=== PATIENT | male | born 1980 | race Caucasian/White ===

== ENCOUNTER 2017-11-25 22:57 | Inpatient (IN) | payer MEDICAID ==
[~2017-11-25] VITALS: Ht 185.4 cm; Wt 59.0 kg
[2017-11-25 00:50] VITALS: BP 127/81; PULSE 92; RESP 20; TEMP 97.4
[~2017-11-25 22:57] MED LIST: GEOD80CA PO; LEVO125T4 PO; TRAZ1TAB14 PO
[2017-11-25 23:15] VITALS: BP 139/89; PULSE 98; RESP 17; TEMP 98.5; O2SAT 97
--- NOTE | 2017-11-25 23:17 | PD ---
HPI Chief Complaint: Psychiatric Symptoms Time Seen by Provider: 23:14 Travel History International Travel<30 days: No Contact w/Intl Traveler<30days: No Traveled to known affect area: No History of Present Illness HPI 37-year-old white male presents to emergency department as a transfer from [facility] under Mccormick act. The patient admits to feeling depressed and having suicidal thoughts. They have been medically cleared. PFSH Past Medical History Bipolar Disorder: Yes Anxiety: Yes Depression: Yes Cardiovascular Problems: Yes (HTN) Diminished Hearing: No Hypertension: Yes Thyroid Disease: Yes Past Surgical History Other Surgery: Yes (thyroid) Social History Alcohol Use: No Tobacco Use: No Substance Use: Yes (marijuana 2 days ago) Allergies-Medications (Allergen,Severity, Reaction): Coded Allergies: morphine (Verified Allergy, Severe, Swelling, 11/15/17) Reported Meds & Prescriptions Reported Meds & Active Scripts Active Reported Levothyroxine (Levothyroxine Sodium) 125 Mcg Tab 125 Mcg PO DAILY Geodon (Ziprasidone) 80 Mg Cap 80 Mg PO BID Trazodone (Trazodone HCl) 150 Mg Tablet 150 Mg PO HS Review of Systems General / Constitutional: No: Fever Eyes: No: Visual changes HENT: No: Headaches Cardiovascular: No: Chest Pain or Discomfort Respiratory: No: Shortness of Breath Gastrointestinal: No: Abdominal Pain Genitourinary: No: Dysuria Musculoskeletal: No: Pain Skin: No Rash Neurologic: No: Weakness Psychiatric: Positive: Depression, Suicidal Ideations, No: Anxiety, Disorder of Thought, Mood Disorder, Substance Abuse, Homicidal Ideation Endocrine: No: Polydipsia Hematologic/Lymphatic: No: Easy Bruising Physical Exam Narrative GENERAL: This is a well-nourished, well-developed patient, in no apparent distress. SKIN: No rashes, ecchymoses or lesions. Warm and dry. HEAD: Atraumatic. Normocephalic. EYES: PERRL, EOMI, no discharge or injection. No scleral icterus. EARS: Clear NOSE: Nasal turbinates appear normal. THROAT: Mucosa pink and moist. Airway patent. NECK: Trachea midline. supple, moves head freely. LUNGS: Clear to auscultation. CV: Regular in rhythm. ABDOMEN: Soft nontender. EXT: No clubbing cyanosis or edema. Data Data Orders Orders Psych Screen (11/25/17 23:07) [facility] Medical Decision Making Medical Screen Exam Complete: Yes Emergency Medical Condition: Yes Medical Record Reviewed: Yes Interpretation(s) Patient's laboratory tests have been reviewed. TSH is elevated at 12. Differential Diagnosis MDM: High Differential diagnoses: Schizophrenia, schizoaffective disorder, bipolar, anxiety, depression, adjustment reaction, mood disorder NOS, ODD, depressive disorder NOS, dementia, dementia with agitation, psychosis NOS, substance induced mood disorder, DMDD, Asperger syndrome, infection,electrolyte abnormality, malingering. Narrative Course Mental health screening discussed with the patient. Psychiatric screen ordered. The patient is been medically cleared. This is medical clearance for psychiatric admission Diagnosis Primary Impression: Medical clearance for psychiatric admission Condition: Stable Miles Olea Nov 25, 2017 23:17
[2017-11-26 00:50] VITALS: BP 127/81; PULSE 92; RESP 16; TEMP 97.4; O2SAT 99
[2017-11-26] MEDS ORDERED: ACETAMINOPHEN 325 MG TAB PO PRN (01:00)
[2017-11-26] MEDS ORDERED: traZODone HCL 50 MG TAB PO PRN (01:00)
[2017-11-26] MEDS ORDERED: ALUMINUM/MAGNESIUM/SIMETH 30 ML CUP PO PRN (01:00)
[2017-11-26] MEDS ORDERED: hydrOXYzine HCL 50 MG TAB PO PRN (01:00)
[2017-11-26] MEDS ORDERED: MAGNESIUM HYDROXIDE SUSP 30 ML CUP PO PRN (01:00)
[2017-11-26 05:55] VITALS: BP 109/59; PULSE 74; RESP 18; TEMP 98.4; O2SAT 99
[2017-11-26] MEDS: NICOTINE 21 MG/24 HR PATCH T-DERMAL SCH (08:27)
[2017-11-26 10:48] LABS: BICARBONATE 29.1 MEQ/L (21.0-32.0); BLOOD UREA NITROGEN 14 MG/DL (7-18); CHLORIDE 104 MEQ/L (98-107); CREATININE 1.01 MG/DL (0.60-1.30); GLOMERULAR FILTRATION RATE 84 ML/MIN (>89); GLUCOSE,RANDOM 79 MG/DL (74-106); SODIUM (NA) 139 MEQ/L (136-145)
[2017-11-26 10:50] LABS: CHOLESTEROL 125 MG/DL (120-200)
[2017-11-26 10:52] LABS: CHOLESTEROL/ HDL RATIO 3.16 RATIO; HDL CHOLESTEROL 39.5 MG/DL (40.0-60.0); LDL CHOLESTEROL 74 MG/DL (0-99); TRIGLYCERIDES 57 MG/DL (42-150)
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
[2017-11-26] MEDS: ZIPRASIDONE HCL 40 MG CAP PO SCH ×2 (13:30→16:38)
--- NOTE | 2017-11-26 15:17 | PD.CONS ---
[facility] By Primary Care Physician No Primary Care Physician Diagnoses: History of Present Illness hx from patient , ER notes and review of medical records Patient is admitted to inpatient psychiatry unit. Patient reports that he has been off his medications which include Xanax, Zoloft , trazodone for about 3 weeks and he was going into withdrawal which was why he was admitted to psychiatry. Medical team was consulted for management of his medical issues. Patient reports of history of hypertension and thyroid cancer. He states that he has been off his medications for these medical conditions as well for the past 3 weeks. He reports of constant nausea and vomiting. Vomited about 2 times a day. He also reports a constant diarrhea and he cannot even count the number. He reports his stool is black in color. He is not on any blood thinners at home. Is not taking any NSAIDs. Not on iron pills. Denies being on antibiotics recently. Reports of weight lost from 180 pounds 235 pounds in the past 1 year. However he had accelerated weight loss in the past 2 months as well. Reports he has trouble swallowing food. Mostly he states even have to bend down his neck in order to swallow food because of dysphagia. He states the travel happens even with water. Also reports of dizziness when he suddenly sits up. Reports of choking episodes on and off. Patient reports of profuse diaphoretic episodes with hot and cold chills. Regarding his thyroid cancer, it was diagnosed as papillary thyroid cancer. He has had surgical removal twice, and also had radioactive iodine treatment twice. Most recently, he was told that he has recurrence because there was some lymph nodes. However he lost his insurance in October 2017 and he was not able to get treatment. Previously, he was following up at [facility] and also at [facility] His previous PCP was in [place]. Patient describes of episodes where he would get quite dizzy and have numbness and tingling of his bilateral extremities with associated chest tightness. He is a smoker half a pack a day. Review of Systems Except as stated in HPI: all other systems reviewed are Neg Past Family Social History Allergies: Coded Allergies: morphine (Verified Allergy, Severe, Swelling, 11/25/17) Past Medical History Hypertension Papillary thyroid carcinoma- status post surgery 2, and radioactive iodine treatment. Was told there is recurrence but has been lost to follow-up due to insurance reasons. PTSD Bipolar disorder Past Surgical History Thyroidectomy Some skin surgery which he was told was for cat scratch disease at the age of 89 years old Family History Reports mother with bipolar disorder. She is also recently diagnosed with leukemia and is still in the workup. Grandmother had thyroid problems. Social History Smokes about half a pack a day. Denies any alcohol abuse or drug abuse. Physical Exam Vital Signs Vital Signs Date Time Temp Pulse Resp B/P (MAP) Pulse Ox O2 Delivery O2 Flow Rate FiO2 11/26/17 05:55 98.4 74 18 109/59 (76) 99 11/26/17 00:50 97.4 92 16 127/81 (96) 99 11/26/17 00:25 11/25/17 23:15 98.5 98 17 139/89 (106) 97 Room Air Physical Exam GENERAL: This is a thin gentleman,, in no apparent distress. Cachectic SKIN: No rashes, ecchymoses or lesions. Cool and dry. HEAD: Atraumatic. Normocephalic. No temporal or scalp tenderness. EYES: No scleral icterus. No injection or drainage. ENT: Nose without bleeding, purulent drainage or septal hematoma. Airway patent. NECK: Trachea midline. No JVD. Supple, nontender, no meningeal signs. CARDIOVASCULAR: Regular rate and rhythm without murmurs, gallops, or rubs. RESPIRATORY: Clear to auscultation. Breath sounds equal bilaterally. No wheezes , rales, or rhonchi. GASTROINTESTINAL: Abdomen soft, non-tender, nondistended. . No guarding. MUSCULOSKELETAL: Extremities without clubbing, cyanosis, or edema. No calf tenderness. NEUROLOGICAL: Awake and alert. Motor and sensory grossly within normal limits Normal speech. Laboratory Laboratory Tests Test 11/26/17 09:40 Blood Urea Nitrogen 14 Creatinine 1.01 Random Glucose 79 Calcium Level 9.0 Sodium Level 139 Potassium Level 4.0 Chloride Level 104 Carbon Dioxide Level 29.1 Anion Gap 6 Estimat Glomerular Filtration Rate 84 Triglycerides Level 57 Cholesterol Level 125 LDL Cholesterol 74 HDL Cholesterol 39.5 Cholesterol/HDL Ratio 3.16 Result Diagram: 11/26/17 0940 Assessment and Plan Assessment and Plan Impression: Bipolar disorder with major depressive episode. Management per psychiatry Loss of follow-up due to insurance reasons. With symptoms highly suggestive of uncontrolled thyroid functions. Nausea/vomiting/diarrhea/chills. Melena. Significant dysphagia. Likely from radiation treatment Weight loss. From depression/malignancy/dysphagia. Papillary thyroid carcinoma. With possible recurrence from history. Hypertension Plan: Check hemoglobin hematocrit stat. Type and screen. From review of his previous labs, it seems that his hemoglobin did drop in the past few days. Check stool for occult blood. GI consult for dysphagia and melena Protonix 40 mg by mouth twice a day. Ultrasound of the thyroid. Oncology consult for further evaluation and treatment. Call [facility] at cancer center and patient's previous doctors to get records of his previous treatments. Check TSH. However even if the levels are altered, would be difficult to change medications dose since he has been off his meds for 3 weeks. It is rather that the levels are off due to not taking meds rather than inadequate meds. His thyroid meds have been resumed. We'll monitor his blood pressure. Doubt that this patient will have high blood pressure with his significant weight loss. Doubt he would need medications. DVT prophylaxis ambulation. GI prophylaxis on pantoprazole. Earlene Hale MD Nov 26, 2017 15:17
--- NOTE | 2017-11-26 16:21 | PD.CONS ---
HPI History of Present Illness This is a 37 year old M who is currently admitted to [facility] psych unit under a Mccormick Act. GI has been consulted to evaluate patient for complaints of dysphagia. Pt has history of thyroid cancer, received two treatments of radioactive iodine, last treatment seven months ago, and underwent thyroidectomy six months ago at [facility] [place]. Pt reports no recent follow up with oncology after he lost his insurance. Complaints of dysphagia since after thyroidectomy, with both liquids and solids. States it feels like his food is getting stuck. Has occasionally had to vomit for relief of globus sensation. Also reports 45 pound unintentional weight loss over the past year, thinks due to loss of appetite. Also reports diarrhea and black stool for the past two months. Also report acid reflux, not on prescription medication and has not been taking anything OTC for relief. Very vague abdominal pain, chronic, denies aggravating or alleviating factors. Denies ETOH. Current half a pack a day smoker, quit for a while and restarted a few weeks ago. Takes an Excedrin daily for migraines. Denies ever having EGD or colonoscopy. Family history significant for colon cancer, father, had to have part of his bowel removed. (Sharon Cobos) PFSH Past Medical History Bipolar disorder Anxiety Depression HTN Thyroid cancer Past Surgical History Thyroidectomy (Sharon Cobos) Coded Allergies: morphine (Verified Allergy, Severe, Swelling, 11/25/17) Social History Denies ETOH Smoker- half a pack a day (Sharon Cobos) Review of Systems Gastrointestinal: COMPLAINS OF: Abdominal pain, Black stools, Diarrhea, Vomiting, Difficulty Swallowing, Odynophagia, Heartburn, DENIES: Bloody stools, Constipation, Nausea, Swelling of Abdomen, Hematemesis (Sharon Cobos) GI Exam Vitals I&O Vital Signs Date Time Temp Pulse Resp B/P (MAP) Pulse Ox O2 Delivery O2 Flow Rate FiO2 11/26/17 05:55 98.4 74 18 109/59 (76) 99 11/26/17 00:50 97.4 92 16 127/81 (96) 99 11/26/17 00:25 11/25/17 23:15 98.5 98 17 139/89 (106) 97 Room Air I/O 1/2111/25/17 11/25/17 11/26/17 11/26/17 11/26/17 07:00 15:00 23:00 07:00 15:00 23:00 Intake Total 240 ml Balance 240 ml Intake Oral 240 ml Laboratory Test 11/26/17 09:40 Blood Urea Nitrogen 14 MG/DL Creatinine 1.01 MG/DL Random Glucose 79 MG/DL Calcium Level 9.0 MG/DL Sodium Level 139 MEQ/L Potassium Level 4.0 MEQ/L Chloride Level 104 MEQ/L Carbon Dioxide Level 29.1 MEQ/L Anion Gap 6 MEQ/L Estimat Glomerular Filtration Rate 84 ML/MIN Triglycerides Level 57 MG/DL Cholesterol Level 125 MG/DL LDL Cholesterol 74 MG/DL HDL Cholesterol 39.5 MG/DL Cholesterol/HDL Ratio 3.16 RATIO Physical Examination HEENT: Normocephalic; atraumatic CHEST: Even/unlabored CARDIAC: RRR ABDOMEN: Soft, nondistended, nontender; bowel sounds active EXTREMITIES: No clubbing, cyanosis, or edema. SKIN: Normal; no rash; no jaundice. IMPORT/EXPORT AGENT: No focal deficits; alert and oriented times three. (Sharon Cobos) Assessment and Plan Plan Assessment: - Dysphagia with liquids and solids- globus sensation after eating- occasional emesis after eating with some relief- Has never had EGD- History of thyroid cancer S/P radioactive iodine x 2, last tx 7 months ago and thyroidectomy 6 months ago when dysphagia began - Black stool x 2 months. H/H 11.8/33.5. Hemoccult ordered by attending. Reports daily Excedrin use for migraines. Denies taking blood thinners, ETOH. Has never had EGD. Will do EGD tomorrow to evaluate - Unintentional weight loss, 45 pounds over past year with decreased appetite. Could be secondary to thyroid cancer, however, due to family history of colon cancer, father. Pt has never had colonoscopy. Will do CT abdomen and pelvis to evaluate. Plan: - EGD with dilation tomorrow - Obtain consent - NPO after MN - Protonix - CT abdomen and pelvis - Monitor labs - Supportive care - Further recommendations to follow Pt has been seen and examined by myself and Dr. Guillory and this note is written on his behalf (Sharon Cobos) Physician Comments Seen and examined with [employer], egd/dilation planned for tomorrow. NPO after midnight. Further recs to follow after above. Thank you (Joel Guillory MD) Sharon Cobos Nov 26, 2017 16:21 Joel Guillory MD Nov 26, 2017 16:43
[2017-11-26 16:22] LABS: HEMOGLOBIN A1C 5.3 % (4.3-6.0)
[2017-11-26 16:57] LABS: BASOPHIL # 0.1 TH/MM3 (0-0.2); BASOPHIL % 0.7 % (0.0-2.0); EOSINOPHIL # 0.2 TH/MM3 (0-0.4); EOSINOPHIL % 1.9 % (0.0-4.0); HEMATOCRIT 35.8 % (39.0-51.0); HEMOGLOBIN 12.5 GM/DL (13.0-17.0); LYMPH % 20.6 % (9.0-44.0); LYMPHOCYTE # 1.8 TH/MM3 (1.0-4.8); MEAN CELL VOLUME 90.1 FL (80.0-100.0); MEAN CORPUSCULAR HEMOGLOBIN 31.3 PG (27.0-34.0); MEAN CORPUSCULAR HGB CONC 34.7 % (32.0-36.0); MEAN PLATELET VOLUME 8.2 FL (7.0-11.0); MONO % 7.5 % (0.0-8.0); MONOCYTE # 0.6 TH/MM3 (0-0.9); NEUT % 69.3 % (16.0-70.0); PLATELET COUNT 211 TH/MM3 (150-450); RED BLOOD COUNT 3.98 MIL/MM3 (4.50-5.90); RED CELL DISTRIBUTION WIDTH 13.5 % (11.6-17.2); WHITE BLOOD COUNT 8.6 TH/MM3 (4.0-11.0)
[2017-11-26] MEDS ORDERED: DIATRIZOATE MEGLUM/DIATRIZOATE SOD 9 ML CUP PO ONE (17:15)
[2017-11-26 17:28] LABS: TROPONIN I LESS THAN 0.02 NG/ML (0.02-0.05)
[2017-11-26 18:09] VITALS: BP 122/75; PULSE 83; RESP 18; TEMP 98.4; O2SAT 96
--- NOTE | 2017-11-26 18:14 | RADRPT ---
EXAM DATE/TIME: 11/26/2017 16:49 [place] COMPARISON: No previous studies available for comparison. INDICATIONS : Thyroid cancer. MEDICAL HISTORY : Hypothyroidism. Hypertension. Bipolar disorder. Juan's disease. thyroid c ancer. chemotherapy. radiation therapy. SURGICAL HISTORY : Thyroidectomy. ENCOUNTER: Initial ACUITY: 3 months PAIN SCORE: 4/10 LOCATION: Bilateral neck MEASUREMENTS: RIGHT LOBE: cmSurgically absent LEFT LOBE: cmSurgically absent FINDINGS: RIGHT LOBE: No significant residual mass in the thyroidectomy bed. LEFT LOBE: Heterogeneously isoechoic mass in the left thyroid bed measuring 1.2 x 0.6 x 0.8 cm. CONCLUSION: 1. Status post total thyroidectomy with heterogeneous isoechoic mass in the left thyroid bed measurin g 1.2 x 2.6 x 0.8 cm. Differential considerations include recurrent/residual thyroid CA. Further imag ing may be performed with radioactive iodine to confirm thyroid tissue. Alternatively, this lesion is potentially amenable to biopsy. Oscar Sherman MD on November 26, 2017 at 18:09 Board Certified Radiologist. This report was verified electronically.
[2017-11-26] MEDS ORDERED: IOHEXOL 350 MG/ML 10 ML VIAL (for RAD DIAG) IVCONTRAST ONE (20:27)
[2017-11-26] MEDS: PANTOPRAZOLE SOD 40 MG DELAYED RELEASE TAB PO SCH (20:44)
[2017-11-26] MEDS ORDERED: traZODone HCL 50 MG TAB PO SCH (21:00)
[2017-11-26] MEDS ORDERED: REMOVE OLD NICOTINE PATCH T-DERMAL SCH (21:00)
--- NOTE | 2017-11-26 21:27 | RADRPT ---
EXAM DATE/TIME: 11/26/2017 20:23 [place] COMPARISON: No previous studies available for comparison. INDICATIONS : Patient complains of weight loss. IV CONTRAST: 80 cc Omnipaque 350 (iohexol) IV ORAL CONTRAST: Prescribed oral contrast ingested. RADIATION DOSE: 4.81 CTDIvol (mGy) MEDICAL HISTORY : Hypertension. thyroid cancer SURGICAL HISTORY : None. ENCOUNTER: Initial ACUITY: 1 day PAIN SCALE: 0/10 LOCATION: abdomen TECHNIQUE: Volumetric scanning of the abdomen and pelvis was performed. Using automated exposure control and ad justment of the mA and/or kV according to patient size, radiation dose was kept as low as reasonably achievable to obtain optimal diagnostic quality images. DICOM format image data is available electro nically for review and comparison. FINDINGS: There is some mild airspace disease in left lower lobe some peribronchial thickening, probably a mild bronchopneumonia. Right lung base clear. No acute findings in the liver, spleen, adrenals, kidneys or pancreas. No free fluid. No bowel obstru ction. No adenopathy. No acute bony abnormalities. CONCLUSION: Mild left basilar airspace disease and peribronchial thickening most characteristic of a mild broncho pneumonia or aspiration. No acute findings within the abdomen and pelvis. Stomach is distended. Miles West MD on November 26, 2017 at 21:21 Board Certified Radiologist. This report was verified electronically.
[2017-11-27 05:48] VITALS: BP 126/70; PULSE 60; RESP 16; TEMP 97.7; O2SAT 96
[2017-11-27] MEDS ORDERED: LEVOTHYROXINE SODIUM 125 MCG TAB PO SCH (06:00)
[2017-11-27] MEDS: NICOTINE 21 MG/24 HR PATCH T-DERMAL SCH (07:15)
[2017-11-27] MEDS: ZIPRASIDONE HCL 40 MG CAP PO SCH (07:33)
[2017-11-27] MEDS: PANTOPRAZOLE SOD 40 MG DELAYED RELEASE TAB PO SCH (07:33)
--- NOTE | 2017-11-27 07:35 | MB ---
cc: ROBYN BRANCH MD, RUBY ANNE E. M.D. DATE OF CONSULTATION 11/26/2017 DATE OF [address] Branch CHIEF COMPLAINT Dr. Branch requests a consultation for Mr. Hubbard regarding history of thyroid cancer. HISTORY OF PRESENT ILLNESS Mr. Hubbard is a 37-year-old man with a history of bipolar disorder and three previous psychiatric admissions. He came to the ER after losing his job and his medical insurance. He was unable to continue his medication and treatment for the past two weeks and decompensated. He has a history of thyroid cancer. He was apparently treated with definitive surgery at [facility]. He had adjuvant radiation/radioactive iodine. He apparently was diagnosed in 2014 and was followed by a medical oncology group in [place]. He developed a recurrence about six months ago. He had repeat surgery. He had a second dose of radioactive iodine. He was seen recently at [facility]. He has known of the abnormality in the ultrasound of the neck. During his admission to the hospital, a CT angiogram was performed that showed no pulmonary embolism. The lungs were clear. Ultrasound of the thyroid post total thyroidectomy showed a heterogeneous isoechoic mass in the left thyroid bed measured 1.2 x 2.6 x 0.8 cm. This was concerning for recurrence versus scar tissue. CT scan of the abdomen showed no acute findings in the abdomen. The stomach is distended. REVIEW OF SYSTEMS Mr. Hubbard reports of dark stools. He is pending a stool for hemoccult. On November 15, 2017, his hemoglobin is 13.3. On the day of the consultation, his hemoglobin was 12.5. Over the 24 hours, his dark stools have stopped. He is pending evaluation by gastroenterology. He takes his thyroid replacement. This was managed by his primary physician until he lost his insurance. A lot seems to have impinged on being able to his medical care with his insurance. Decompensation was caused by the unaffordability of continued health care. He was able to tell a lot of the history. No medical records were available during the consultation. He seems to have been resigned to his inpatient admission to the psychiatry unit. He is looking forward to improve his mood. The rest of his review of systems is negative. PAST MEDICAL HISTORY 1. Hypothyroidism 2. Questionable GI bleed. 3. Status post radioactive iodine x2. 4. Bipolar disorder 5. Depression 6. Hypertension 7. PTSD 8. Papillary thyroid cancer PAST SURGICAL HISTORY 1. Total thyroidectomy 2. Repeat thyroid surgery FAMILY HISTORY Mother had bipolar disorder and grandmother had thyroid problems. SOCIAL HISTORY He smokes a half a pack a day. Denies any alcohol or illicit drug use. He is , has three children who do not live with him. PHYSICAL EXAMINATION Temperature 98.4, heart rate 83, respiratory rate 18, blood pressure 122/75, saturation 96%. GENERAL: Mr. Hubbard is a well-developed, well-nourished young man who looks his stated age. HEAD, EYES, EARS, NOSE, AND THROAT: His pupils are round and reactive to light and accommodation. Oropharynx is clear. NECK: Supple with a long scar on the left side of his neck. No palpable abnormality is appreciated. Mild asymmetry from the surgery. LUNGS: Clear to auscultation. CARDIOVASCULAR: Exam reveals a normal rate, rhythm. ABDOMEN: Benign. EXTREMITIES: Lower extremities with no edema. NEUROLOGIC: Exam shows a reserved quiet young man. No focal deficits. ASSESSMENT/PLAN Mr. Hubbard is a 37-year-old man with a history of bipolar disorder, depression, PTSD who presents with decompensation after losing his medical insurance. He is unable to keep up with his medical treatment for his psychiatric condition. He is admitted to the inpatient psychiatric unit. He has had a history of papillary thyroid cancer, underwent a thyroidectomy and radioactive iodine. He appears to have had a recurrence about six months ago and was retreated. Repeat surgery was performed. We discussed prioritizing his mood disorder. He seems to be aware of the changes in his neck from ultrasound at [facility]. It will be difficult to compare the ultrasound from [facility] to that of the current. There are no other evidences of distant metastatic disease. He has had surgery on his neck repeated six months ago. I suspect the above is postsurgical changes. He will ultimately need follow-up ultrasound of the thyroid with a thyroid scan. His TSH is elevated. Primary medical team is following him. He will have his thyroid replacement adjusted. He has mild anemia and questionable GI bleeding with a presentation of dark tarry stools. We discussed GI evaluation which is ongoing. He denies excessive use of NSAIDs, aspirin and Pepto-Bismol. His questions were answered to his satisfaction. MD JAYLENE Schultz /12:05 AM /7:13 AM DANITA
--- NOTE | 2017-11-27 17:42 | EKG ---
Date Performed: 11/26/2017 Time Performed: 15:44:07 PTAGE: 37 years EKG: Sinus rhythm POSSIBLE RIGHT VENTRICULAR CONDUCTION DELAY BORDERLINE ECG NO PREVIOUS TRACING DOCTOR: Ramin Wallis Interpretating Date/Time 11/27/2017 17:34:37
== END 2017-11-27 10:50 | disposition home or self-care (01) | DRG 885 ==
LOC: NEPJ 22:57 → NEDA 11-26 00:08 → H260 11-26 00:48
PROVIDERS: ADMIT Student in an Organized Health Care Education/Training Program; ATTEND Student in an Organized Health Care Education/Training Program
DX: F31.5 Bipolar disorder, current episode depressed, severe, with psychotic features (principal); R13.10 Dysphagia, unspecified; R45.851 Suicidal ideations; Z68.1 Body mass index [BMI] 19.9 or less, adult; I10 Essential (primary) hypertension; R63.4 Abnormal weight loss; E89.0 Postprocedural hypothyroidism; D64.9 Anemia, unspecified; F17.210 Nicotine dependence, cigarettes, uncomplicated; F43.10 Post-traumatic stress disorder, unspecified; G43.909 Migraine, unspecified, not intractable, without status migrainosus; G47.00 Insomnia, unspecified; K21.9 Gastro-esophageal reflux disease without esophagitis; F12.90 Cannabis use, unspecified, uncomplicated; F41.9 Anxiety disorder, unspecified; R63.0 Anorexia; R11.2 Nausea with vomiting, unspecified; R19.7 Diarrhea, unspecified; Z85.850 Personal history of malignant neoplasm of thyroid; Z81.8 Family history of other mental and behavioral disorders; Z92.3 Personal history of irradiation; Z91.5 Personal history of self-harm
CPT/HCPCS: 74177; 76536; 80048; 80053; 80061; 80307; 82550; 83036; 84443; 84484; 85025; 86850; 86900; 86901; 93005; Q0177; Q9963; Q9967

== ENCOUNTER 2017-11-27 14:31 | Inpatient (IN) | payer MEDICAID ==
[~2017-11-27 14:31] MED LIST changes: -CHLORHEXIDINE GLUCONATE 2 % 1 PACK (2 CLOTHS) TOPICAL PRN; -INSULIN HUMAN REGULAR 1,000 UNITS/10 ML VIAL SQ PRN; -LACTATED RINGER'S 1000 ML IV PRN; -LEVO.125 PO; -METOPROLOL TARTRATE 25 MG TAB PO PRN; -PANT40TA3 PO; -POVIDONE IODINE 5% (ANTISEPSIS KIT) 4 APPLICATIONS EACH NARE PRN; -SODIUM CHLORID 0.9% 500 ML IV PRN; -TRAZ100T10 PO; -ZIPR40 PO
--- NOTE | 2017-11-27 15:24 | HHI.PR ---
Subjective Remarks This is a follow-up on a 37-year-old male recently admitted to inpatient psychiatry with past V# [id number]. Patient was discharged from inpatient psychiatry after undergoing upper EGD and was subsequently readmitted to inpatient psychiatry with new V number. Patient is seen and examined resting comfortably in bed in no acute distress. He does report a headache however states this is a typical headache which she has had. He reports chills, fevers and night sweats on and off for the past several months along with weight loss in the past year. He is also complaining of nasal discharge and states that this is of a yellow color, left eye drainage which began today. He denies any chest pain, cough, shortness of breath, or dizziness. Objective Objective Remarks GENERAL: This is a thin gentleman,, in no apparent distress. Cachectic SKIN: No rashes, ecchymoses or lesions. Cool and dry. HEAD: Atraumatic. Normocephalic. EYES: Left eyelid minimal swelling noted. No injection or drainage. ENT: Nose without bleeding, purulent drainage or septal hematoma. No tonsillar exudate. Airway patent. NECK: Trachea midline. No JVD. Supple, nontender, no meningeal signs. CARDIOVASCULAR: Regular rate and rhythm without murmurs, gallops, or rubs. RESPIRATORY: Clear to auscultation. Breath sounds equal bilaterally. No wheezes , rales, or rhonchi. GASTROINTESTINAL: Abdomen soft, non-tender, nondistended. . No guarding. MUSCULOSKELETAL: Extremities without clubbing, cyanosis, or edema. NEUROLOGICAL: Awake and alert. Motor and sensory grossly within normal limits Normal speech. Procedures Upper EGD 11/27/17 A/P Assessment and Plan 37-year-old male admitted to inpatient psychiatry after discontinuing Xanax, Zoloft, and trazodone which was used to treat his bipolar depression. Patient with a past medical history of thyroid cancer with complaints of night sweats, fevers, chills, and increased weight loss in the past several months. Bipolar disorder/major depressive episode - Management per psychiatry Thyroidectomy secondary to cancer Dysphagia - s/p surgery 2, radioactive iodine treatment - TSH 20.7, likely due to noncompliance, continue levothyroxine 125mcg - Will need TSH rechecked in 6 weeks as outpatient. - Thyroid ultrasound completed on 11/26 reviewed, s/p thyroidectomy with heterogeneous isoechoic mass in the left thyroid bed measuring 1.2 x 2.6 x 0.8 cm. Differential considerations include recurrent/residual thyroid CA. Further imaging may be performed with radioactive iodine to confirm thyroid tissue. Alternatively this lesion is potentially amendable to biopsy. - Hematology/oncology consulted and saw patient on 11/27 who suspect the above is postsurgical changes. He will ultimately need follow-up ultrasound of the thyroid with thyroid scan as outpatient. Unintentional weight loss Black stools Night sweats/fever/chills - ? Unintentional weight loss may be related to depression - Hematology/oncology consulted, appreciate recommendations - CT of abdomen and pelvis done on 11/26/17 reviewed, mild left basilar airspace disease and peribronchial thickening most characteristic of mild bronchial pneumonia or aspiration. No acute findings within the abdomen and pelvis. Stomach is distended. - Patient underwent upper EGD by GI today, awaiting results. - H&H stable, vital signs stable, afebrile. Nasal drainage/left eye eyelid edema - Patient has been afebrile prior, on room air, no shortness of breath, lungs sound clear, no WBC count - CT of abdomen pelvis didn't show left basilar airspace disease and peribronchial thickening consistent with mild bronchial pneumonia or aspiration - Will continue monitoring for the moment, recheck eye tomorrow. DVT prophylaxis- ambulating Sonny Lopez Nov 27, 2017 15:24
[2017-11-27] MEDS ORDERED: ALUMINUM/MAGNESIUM/SIMETH 30 ML CUP PO PRN (16:15)
[2017-11-27] MEDS ORDERED: ACETAMINOPHEN 325 MG TAB PO PRN (16:15)
[2017-11-27] MEDS ORDERED: hydrOXYzine HCL 50 MG TAB PO PRN (16:15)
[2017-11-27] MEDS ORDERED: MAGNESIUM HYDROXIDE SUSP 30 ML CUP PO PRN (16:15)
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
[2017-11-27] MEDS: ZIPRASIDONE HCL 40 MG CAP PO SCH (17:00)
[2017-11-27 18:14] VITALS: BP 122/70; PULSE 62; RESP 16; TEMP 97.9; O2SAT 97
[2017-11-27] MEDS: traZODone HCL 100 MG TAB PO SCH (20:11)
[2017-11-27] MEDS: PANTOPRAZOLE SOD 40 MG DELAYED RELEASE TAB PO SCH (20:11)
[2017-11-28 05:37] VITALS: BP 107/61; PULSE 75; RESP 18; TEMP 97.8; O2SAT 98
[2017-11-28] MEDS: LEVOTHYROXINE SODIUM 125 MCG TAB PO SCH (06:00)
[2017-11-28] MEDS: ZIPRASIDONE HCL 40 MG CAP PO SCH ×2 (08:54→18:00)
[2017-11-28] MEDS: PANTOPRAZOLE SOD 40 MG DELAYED RELEASE TAB PO SCH (08:54)
[2017-11-28 11:47] LABS: AUTOMATED NEUTROPHIL # 5.1 TH/MM3 (1.8-7.7); BASOPHIL # 0.1 TH/MM3 (0-0.2); BASOPHIL % 0.8 % (0.0-2.0); EOSINOPHIL # 0.1 TH/MM3 (0-0.4); EOSINOPHIL % 1.4 % (0.0-4.0); HEMATOCRIT 39.1 % (39.0-51.0); HEMOGLOBIN 13.6 GM/DL (13.0-17.0); LYMPH % 21.7 % (9.0-44.0); LYMPHOCYTE # 1.6 TH/MM3 (1.0-4.8); MEAN CELL VOLUME 89.5 FL (80.0-100.0); MEAN CORPUSCULAR HEMOGLOBIN 31.2 PG (27.0-34.0); MEAN CORPUSCULAR HGB CONC 34.8 % (32.0-36.0); MEAN PLATELET VOLUME 7.9 FL (7.0-11.0); MONO % 6.1 % (0.0-8.0); MONOCYTE # 0.4 TH/MM3 (0-0.9); PLATELET COUNT 262 TH/MM3 (150-450); RED BLOOD COUNT 4.37 MIL/MM3 (4.50-5.90); RED CELL DISTRIBUTION WIDTH 13.3 % (11.6-17.2); WHITE BLOOD COUNT 7.3 TH/MM3 (4.0-11.0)
--- NOTE | 2017-11-28 13:46 | PD.ONC.PN ---
Subjective Subjective Remarks Afebrile overnight. Patient states he is feeling much better since he is on the right medications now. States his mood is significantly improved. He also reports his swallowing is much improved since EGD with dilation yesterday. He is hoping to be discharged tomorrow. Objective Data Date Time Temp Pulse Resp B/P (MAP) Pulse Ox O2 Delivery O2 Flow Rate FiO2 11/28/17 05:37 97.8 75 18 107/61 (76) 98 11/27/17 18:14 97.9 62 16 122/70 (87) 97 Result Diagram: 11/28/17 1030 Laboratory Results Laboratory Tests Test 11/28/17 10:30 White Blood Count 7.3 TH/MM3 Red Blood Count 4.37 MIL/MM3 Hemoglobin 13.6 GM/DL Hematocrit 39.1 % Mean Corpuscular Volume 89.5 FL Mean Corpuscular Hemoglobin 31.2 PG Mean Corpuscular Hemoglobin Concent 34.8 % Red Cell Distribution Width 13.3 % Platelet Count 262 TH/MM3 Mean Platelet Volume 7.9 FL Neutrophils (%) (Auto) 70.0 % Lymphocytes (%) (Auto) 21.7 % Monocytes (%) (Auto) 6.1 % Eosinophils (%) (Auto) 1.4 % Basophils (%) (Auto) 0.8 % Neutrophils # (Auto) 5.1 TH/MM3 Lymphocytes # (Auto) 1.6 TH/MM3 Monocytes # (Auto) 0.4 TH/MM3 Eosinophils # (Auto) 0.1 TH/MM3 Basophils # (Auto) 0.1 TH/MM3 CBC Comment DIFF FINAL Differential Comment Administered Medications Medications (Trade) Dose Ordered Sig/Dolores Route PRN Reason Start Time Stop Time Status Last Admin Dose Admin Ziprasidone (Geodon) 40 mg BIDPC PO 11/27/17 18:00 11/28/17 08:54 Levothyroxine Sodium (Synthroid) 125 mcg DAILY@0600 PO 11/28/17 06:00 11/28/17 06:00 Trazodone HCl (Desyrel) 200 mg HS PO 11/27/17 21:00 11/27/17 20:11 Pantoprazole Sodium (Protonix) 40 mg Q12HR PO 11/27/17 21:00 11/28/17 08:54 Objective Remarks GENERAL: Young man, sitting up in common area in nad. SKIN: Warm and dry. HEAD: Normocephalic. EYES: No scleral icterus. No injection or drainage. NECK: Supple, trachea midline. CARDIOVASCULAR: Regular rate and rhythm RESPIRATORY: Breath sounds equal bilaterally. No accessory muscle use. GASTROINTESTINAL: Abdomen soft, non-tender, nondistended. MUSCULOSKELETAL: No cyanosis, or edema. NEURO: awake and alert, normal speech. moving all extremities. Assessment/Plan Problem List: (1) History of thyroid cancer ICD Codes: Z85.850 - Personal history of malignant neoplasm of thyroid Plan: History (brought forward from initial consult for continuity of care) --was apparently treated with definitive surgery at [facility]. --had adjuvant radiation/radioactive iodine. --was diagnosed in 2014 and was followed by a medical oncology group in [place]. --developed a recurrence about six months ago. had repeat surgery. had a second dose of radioactive iodine. --seen recently at [facility]. has known of the abnormality in the ultrasound of the neck. Ultrasound of the thyroid post total thyroidectomy showed a heterogeneous isoechoic mass in the left thyroid bed measured 1.2 x 2.6 x 0.8 cm. This was concerning for recurrence versus scar tissue. Assessment 37y/o male admitted to psychiatric unit with depression. Oncology consulted for history of thyroid cancer. history of bipolar disorder and three previous psychiatric admissions. Plan 1. face sheet faxed to new patient referrals. 2. will arrange follow up in the clinic once discharged from hospital 3. oncology will sign off. please call or reconsult if needed again while inpatient. Roma Quiroz Nov 28, 2017 13:46
--- NOTE | 2017-11-28 17:28 | HHI.GIFU ---
Subjective Remarks Pt reports improvement in swallowing today with no difficulties. No GI complaints at this time. (Sharon Cobos) Objective Vitals I&O Vital Signs Date Time Temp Pulse Resp B/P (MAP) Pulse Ox O2 Delivery O2 Flow Rate FiO2 11/28/17 05:37 97.8 75 18 107/61 (76) 98 11/27/17 18:14 97.9 62 16 122/70 (87) 97 Laboratory Laboratory Tests Test 11/28/17 10:30 White Blood Count 7.3 Red Blood Count 4.37 Hemoglobin 13.6 Hematocrit 39.1 Mean Corpuscular Volume 89.5 Mean Corpuscular Hemoglobin 31.2 Mean Corpuscular Hemoglobin Concent 34.8 Red Cell Distribution Width 13.3 Platelet Count 262 Mean Platelet Volume 7.9 Neutrophils (%) (Auto) 70.0 Lymphocytes (%) (Auto) 21.7 Monocytes (%) (Auto) 6.1 Eosinophils (%) (Auto) 1.4 Basophils (%) (Auto) 0.8 Neutrophils # (Auto) 5.1 Lymphocytes # (Auto) 1.6 Monocytes # (Auto) 0.4 Eosinophils # (Auto) 0.1 Basophils # (Auto) 0.1 CBC Comment DIFF FINAL Differential Comment Physical Exam HEENT: Normocephalic; atraumatic CHEST: Even/unlabored CARDIAC: RRR ABDOMEN: Soft, nondistended, nontender; bowel sounds active EXTREMITIES: No clubbing, cyanosis, or edema. SKIN: Normal; no rash; no jaundice. MASTER PILOT: No focal deficits; alert and oriented times three. (Sharon Cobos) Assessment and Plan Plan Assessment: - Dysphagia with liquids and solids- globus sensation after eating- occasional emesis after eating with some relief- Has never had EGD- History of thyroid cancer S/P radioactive iodine x 2, last tx 7 months ago and thyroidectomy 6 months ago when dysphagia began - Black stool x 2 months. H/H 11.8/33.5. Hemoccult ordered by attending. Reports daily Excedrin use for migraines. Denies taking blood thinners, ETOH. Has never had EGD. Will do EGD tomorrow to evaluate - Unintentional weight loss, 45 pounds over past year with decreased appetite. Could be secondary to thyroid cancer, however, due to family history of colon cancer, father. Pt has never had colonoscopy. Will do CT abdomen and pelvis to evaluate. (11/28) S/P EGD with dilation -->EGD --> There was LA Class A esophagitis noted; biopsy was performed. There was erythematous gastritis in the gastric antrum. Normal duodenal mucosa in the bulb and second portion of the duodenum. CT abdomen and pelvis revealed no acute findings concerning for weight loss reported. Biopsy pending, can be followed up on outpatient. Recommendations to repeat EGD in one year. Continue Pantoprazole 40 mg daily. Avoid NSAIDs. GI will sign off, please reconsult as needed. Pt has been seen and examined by myself and Dr. Guillory and this note is written on his behalf (Sharon Cobos) Physician Comments Soing better, gi will sign off, gi fu upon dc. Thankyou (Joel Guillory MD) Sharon Cobos Nov 28, 2017 17:28 Joel Guillory MD Nov 29, 2017 17:14
--- NOTE | 2017-11-28 17:33 | HHI.PYPN ---
Subjective Remarks Patient seen for follow-up, chart reviewed. Patient was found sitting in dayroom watching television, calm and cooperative with interview. Patient states that he is feeling "great", denied having any suicidal ideation with improvement in mood. He states that he no longer feels depressed as he has been put back on his medications. He denies any auditory hallucinations and states wanting to follow up with his medical providers after discharge. He mentions that he has a close friend, Odalis, who he states has been there for him and can count on. Review of Systems Except as stated in HPI: all other systems reviewed are Neg Mental Status Examination Appearance: Appropriate Consciousness: Alert Orientation: Person, Place, Date/Time Motor Activity: Normal gait Speech: Unremarkable Language: Adequate Fund of Knowledge: Inadequate Attention and Concentration: Adequate Memory: Unremarkable Mood: Appropriate Affect: Appropriate Thought Process & Associations: Intact, Linear Thought Content: Appropriate Hallucination Type: None Delusion Type: None Suicidal Ideation: No Suicidal Plan: No Suicidal Intention: No Homicidal Ideation: No Homicidal Plan: No Homicidal Intention: No Insight: Fair Judgment: Impulsive Results Labs labs reviewed Test 11/28/17 10:30 White Blood Count 7.3 TH/MM3 Red Blood Count 4.37 MIL/MM3 Hemoglobin 13.6 GM/DL Hematocrit 39.1 % Mean Corpuscular Volume 89.5 FL Mean Corpuscular Hemoglobin 31.2 PG Mean Corpuscular Hemoglobin Concent 34.8 % Red Cell Distribution Width 13.3 % Platelet Count 262 TH/MM3 Mean Platelet Volume 7.9 FL Neutrophils (%) (Auto) 70.0 % Lymphocytes (%) (Auto) 21.7 % Monocytes (%) (Auto) 6.1 % Eosinophils (%) (Auto) 1.4 % Basophils (%) (Auto) 0.8 % Neutrophils # (Auto) 5.1 TH/MM3 Lymphocytes # (Auto) 1.6 TH/MM3 Monocytes # (Auto) 0.4 TH/MM3 Eosinophils # (Auto) 0.1 TH/MM3 Basophils # (Auto) 0.1 TH/MM3 CBC Comment DIFF FINAL Differential Comment Vitals/IOs Vital Signs Date Time Temp Pulse Resp B/P (MAP) Pulse Ox O2 Delivery O2 Flow Rate FiO2 11/28/17 05:37 97.8 75 18 107/61 (76) 98 Assessment & Plan Problem List: (1) Bipolar disorder, curr episode depressed, severe, w/psychotic features ICD Codes: F31.5 - Bipolar disorder, current episode depressed, severe, with psychotic features Assessment & Plan Patient at this time noted with improved mood, denied having any depressive symptoms nor any suicidal ideations. He denies any perceptual disturbances. Patient to continue current treatment and recommendations as per primary medical team. Discharge planning in progress. Justification for Cont. Inpt. At risk for further decompensation at lower level of care. Discharge Planning Back to his residence once medically and psychiatrically cleared. Storm June MD Nov 28, 2017 17:33
[2017-11-28 18:00] VITALS: BP 129/79; PULSE 98; RESP 20; TEMP 98.6; O2SAT 98
[2017-11-28] MEDS: traZODone HCL 100 MG TAB PO SCH (21:00)
[2017-11-29 05:24] VITALS: BP 110/75; PULSE 65; RESP 16; TEMP 97.8
[2017-11-29] MEDS: LEVOTHYROXINE SODIUM 125 MCG TAB PO SCH (06:00)
[2017-11-29] MEDS: ZIPRASIDONE HCL 40 MG CAP PO SCH (08:50)
[2017-11-29] MEDS ORDERED: PANTOPRAZOLE SOD 40 MG DELAYED RELEASE TAB PO SCH (09:00)
--- NOTE | 2017-11-29 12:16 | PD.TTN ---
Patient Problems 1. Discharge planning 2. Medication compliance 3. Knowledge deficit 4. Lack of coping skills Progress Toward Goals Provider Present: Dr. Antonia June Provider Input: 11/28/2017 - Dr. june reported the patient is improving but no ready for discharge yet. Psychiatric Counselors Present: HENRRY Allan Psych Therapist Input: 11/28/2017 - Counselor reported the patient returned for his scope and is resting on the unit. Counselor has asked [facility] to evaluate the patient for insurance/social security benefits so he may continue to afford treatment for his thyroid cancer and mental health issues. Group Spec/RT/OT/MCLEAN Present: VINAY Todd Group Spec/RT/OT/MCLEAN Input: 11/28/2017 - Does not attend groups. Discharge Plan SMA Patient will be discharged home when deemed appropriate by Dr. June. Documentation Scribe: HENRRY Allan Date Resolved: Nov 28, 2017 Cierra Cano Nov 29, 2017 12:16
[2017-11-29] MEDS ORDERED: TRAZ100T10 PO (12:36)
[2017-11-29] MEDS ORDERED: PANT40TA3 PO (12:36)
[2017-11-29] MEDS ORDERED: LEVO.125 PO (12:36)
[2017-11-29] MEDS ORDERED: ZIPR40 PO (12:36)
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
== END 2017-11-29 15:45 | disposition home or self-care (01) | DRG 885 ==
LOC: H260 14:31
PROVIDERS: ADMIT Student in an Organized Health Care Education/Training Program; ATTEND Student in an Organized Health Care Education/Training Program
DX: F31.5 Bipolar disorder, current episode depressed, severe, with psychotic features (principal); R13.10 Dysphagia, unspecified; R45.851 Suicidal ideations; K20.9 Esophagitis, unspecified; K29.70 Gastritis, unspecified, without bleeding; E89.0 Postprocedural hypothyroidism; I10 Essential (primary) hypertension; F43.10 Post-traumatic stress disorder, unspecified; F17.210 Nicotine dependence, cigarettes, uncomplicated; F12.90 Cannabis use, unspecified, uncomplicated; F41.9 Anxiety disorder, unspecified; H02.846 Edema of left eye, unspecified eyelid; R19.5 Other fecal abnormalities; R63.4 Abnormal weight loss; Z91.14 Patient's other noncompliance with medication regimen; Z81.8 Family history of other mental and behavioral disorders; Z92.3 Personal history of irradiation; Z85.850 Personal history of malignant neoplasm of thyroid; Z91.5 Personal history of self-harm
CPT/HCPCS: 80053; 80307; 84443; 85025; 93005; 99284; Q0177

== ENCOUNTER → 2017-11-27 | Outpatient (CLI) | payer MEDICAID ==
[~2017-11-27] MED LIST changes: +CHLORHEXIDINE GLUCONATE 2 % 1 PACK (2 CLOTHS) TOPICAL PRN; +INSULIN HUMAN REGULAR 1,000 UNITS/10 ML VIAL SQ PRN; +LACTATED RINGER'S 1000 ML IV PRN; +LEVO.125 PO; +METOPROLOL TARTRATE 25 MG TAB PO PRN; +PANT40TA3 PO; +POVIDONE IODINE 5% (ANTISEPSIS KIT) 4 APPLICATIONS EACH NARE PRN; +SODIUM CHLORID 0.9% 500 ML IV PRN; +TRAZ100T10 PO; +ZIPR40 PO
--- NOTE | 2017-11-27 13:36 | GIPROC ---
[facility] [address] [facility]. [facility], [address] EGD PROCEDURE REPORT EXAM DATE: 11/27/2017 PATIENT NAME: Carlos Hubbard MR #: [id number] BIRTHDATE: 1980 ATTENDING: Joel Guillory MD ORDER #: [id number] [employer] MANAGER: Oziel Mack and Rose Mary Hanks STATUS: outpatient INDICATIONS: The patient is a 37 yr old male here for an EGD due to dyspepsia and dysphagia PROCEDURE PERFORMED: EGD w/ biopsy MEDICATIONS: None and Per Anesthesia. TOPICAL ANESTHETIC: CONSENT: The patient understands the risks and benefits of the procedure and understands that these risks include, but are not limited to: sedation, allergic reaction, infection, perforation and/or bleeding. Alternative means of evaluation and treatment include, among others: physical exam, x-rays, and/or surgical intervention. The patient elects to proceed with this endoscopic procedure. medical equipment was checked for proper function. Hand hygiene and appropriate measures for infection prevention was taken. After the risks, benefits and alternatives of the procedure were thoroughly explained, Informed consent was verified, confirmed and timeout was successfully executed by the treatment team. The patient was anesthetized with topical anesthesia and the Pentax EG-[id number] endoscope was introduced through the mouth and advanced to the second portion of the duodenum. Retroflexed views revealed no abnormalities The gastroscope was then slowly withdrawn and removed. ESOPHAGUS: There was LA Class A esophagitis noted. A biopsy was performed using cold forceps. Sample sent for histology. STOMACH: There was erythematous moderate gastritis in the gastric antrum. DUODENUM: The duodenal mucosa appeared normal in the bulb and second portion of the duodenum. ADVERSE EVENTS: There were no complications. IMPRESSIONS: 1. There was LA Class A esophagitis noted; biopsy was performed 2. There was erythematous gastritis in the gastric antrum 3. Normal duodenal mucosa in the bulb and second portion of the duodenum 4. Retroflexed views revealed no abnormalities RECOMMENDATIONS: 1. Await biopsy results. Biopsy results will not be ready for 7-10 days. If you don't hear from us in two weeks, call our office for biopsy results. 2. Anti-reflux regimen 3. Continue PPI PATIENT CONDITION: stable DISPOSITION: Inpatient REPEAT EXAM: Return 1 year EGD pending biopsy results Joel Guillory MD eSigned: Joel Guillory MD 11/27/2017 1:36 PM cc: PATIENT NAME: Carlos Hubbard MR#: [id number]
[2017-11-27 13:49] VITALS: BP 113/75; PULSE 78; RESP 16; TEMP 97.7; O2SAT 98
== END ==
LOC: HEND 11:10
PROVIDERS: ATTEND Internal Medicine Gastroenterology
DX: K20.9 Esophagitis, unspecified (principal); K29.70 Gastritis, unspecified, without bleeding; R13.10 Dysphagia, unspecified; R10.13 Epigastric pain; I10 Essential (primary) hypertension; E06.3 Autoimmune thyroiditis; F43.10 Post-traumatic stress disorder, unspecified
CPT/HCPCS: 88305

== ENCOUNTER 2018-01-01 15:28 | Inpatient (IN) | payer OTHER ==
[~2018-01-01] VITALS: Ht 185.4 cm; Wt 64.2 kg
[~2018-01-01 15:28] MED LIST changes: -GEOD80CA PO; +LEVO.125 PO; +PANT40TA3 PO; +TRAZ100T10 PO; +ZIPR40 PO; +ZOLO100T PO
--- NOTE | 2018-01-01 16:23 | PD ---
History of Present Illness Chief Complaint: Bipolar disorder, current episode depressed, severe Time Seen by Provider: 16:00 Travel History International Travel<30 Days: No Contact w/Intl Traveler<30days: No Known affected area: No Legal Status Legal Status: Mccormick Act History of Present Illness: Mr. Hubbard is a 37-year-old , male who presents under a Mccormick act from [facility] ED for suicidal ideation. Patient reports extreme depression stemming from his diagnosis of thyroid cancer. He states that he had his thyroid removed several months ago however, he now has a swollen lymph node. He reports feeling "super low depressed" and having suicidal thoughts. Patient states, "I thought about hanging myself". Reviewed electronic medical record and labs. Discussed case with staff. Evaluated patient in his room in [facility]. Patient is awake alert and oriented. His speech is clear, organized, and logical. He is neatly groomed. He endorses intermittent thoughts of suicide by hanging more prevalent at night. His last attempted suicide was approximately 4 years ago. He reported taking an overdose of pain medications at that time. Reports sleeping 2-3 hours per night, states that he wakes up and can get back to sleep due to his racing thoughts. He smokes 1 pack per day of cigarettes, drinks alcohol occasionally, reports smoking marijuana. Toxicology screen is positive for benzodiazepines and cannabinoids. Reports decreased appetite. States that he lives in a house "with some roommates" in [facility]. Is currently unemployed "due to the cancer". According to the patient, he was diagnosed with bipolar approximately 1 year ago. He reports that his mother also carries a diagnosis of bipolar disorder. Patient reports that he has not had his psychotropic medications for approximately 2 months now due to transportation issues. He denies homicidal ideation, auditory hallucinations, visual hallucinations, and does not appear to be delusional at this time. [facility] Past Medical History Narrative Medical Patient cleared medically and [facility] ED. Autoimmune Disease: Yes (Juan's Disease) Bipolar Disorder: Yes Anxiety: Yes Depression: Yes Cancer: Yes (thyroid) Cardiovascular Problems: No Chemotherapy: Yes Diabetes: No Diminished Hearing: No Endocrine: Yes Genitourinary: No Headaches: No Hypertension: Yes Immune Disorder: Yes Musculoskeletal: No Neurologic: No Psychiatric: Yes (anxiety, depression, Bipolar Disoorder) Reproductive: No Respiratory: No Radiation Therapy: Yes Seizures: No Thyroid Disease: Yes ?: Not Past Surgical History Endocrine Surgery: Yes (THYROIDECTOMY) Other Surgery: Yes (total thyroid removal; LYMPH NODES REMOVED) Psychiatric History Psychiatric History Multiple inpatient psychiatric admissions. Reports that he failed to follow-up outpatient with [facility] due to transportation issues. Hx Psychiatric Treatment: Patient reports that he most recently received his medications from the [email or web address] in [place] and has ran out of all medications since leaving the [facility] three months ago. Patient reports he was on the in-patient unit at the [facility] for "a coupke weeks." History of Inpatient Treatment: Yes Guns or firearms in home: No Social History "I am living in a house with some roommates." Patient smokes 1 pack of cigarettes per day, drinks occasionally, and smokes marijuana. He reports that he is , and has 5 children who do not live with him. Hx Alcohol Use: Yes (RARELY) Hx Tobacco Use: Yes (1 PPD) Hx Substance Use: Yes (marijuana 2 days ago) Substance Use Type: Marijuana Hx of Substance Use Treatment: No Family Psychiatric History Per patient, family history of suicide, and his mother has been diagnosed with bipolar disorder as well. Allergies-Medications (Allergen,Severity, Reaction): Coded Allergies: morphine (Verified Allergy, Severe, Swelling, 01/01/18) Reported Meds & Prescriptions Reported Meds & Active Scripts Active Geodon (Ziprasidone) 40 Mg Cap 40 Mg PO BIDPC 30 Days Reported Zoloft (Sertraline HCl) 100 Mg Tab 150 Mg PO DAILY Levothyroxine (Levothyroxine Sodium) 125 Mcg Tab 125 Mcg PO DAILY Trazodone (Trazodone HCl) 150 Mg Tablet 150 Mg PO HS Mental Status Examination Appearance: Appropriate, Well dressed/well groomed Consciousness: Alert Orientation: x4 Motor Activity: Normal gait Speech: Unremarkable Language: Adequate Fund of Knowledge: Adequate Attention and Concentration: Adequate Memory: Unremarkable Mood: Sad Affect: Sad Thought Process & Associations: Intact, Logical Thought Content: Appropriate Hallucination Type: None Delusion Type: None Suicidal Ideation: Yes Suicidal Plan: Yes (Hanging) Suicidal Intention: No Homicidal Ideation: No Homicidal Plan: No Homicidal Intention: No Insight: Adequate Judgment: Adequate MDM Medical Decision Making Medical Record Reviewed: Yes Assessment/Plan This is a 37-year-old , male who presents under a Mccormick act from the [facility] emergency department for suicidal ideation. Patient has been seen at this facility on multiple occasions for mental health issues. His last inpatient admission at this facility was from November 27-2017. He was recently treated and discharged from the [facility]. He endorses intermittent thoughts of suicide by hanging. He reports that these thoughts are more intrusive in the evenings and at night. He reports a previous history of suicide attempts with the last one being approximately 4 years ago by overdose. Patient recently underwent a thyroidectomy but they believe the cancer has spread, and a swollen lymph node has been located on the left side of his neck. Patient states that he was unable to follow-up with [facility] due to transportation issues and thus has been without his medication for approximately 2 months. Due to patient's extensive history of mental illness, and his medical diagnoses, he will be admitted inpatient for psychiatric stabilization and medication adjustments as required. Diagnosis Primary Impression: Bipolar disorder current episode depressed Additional Impression: Depression with suicidal ideation Admitting Information Admitting Physician Requests: Admit Problem Qualifiers Sameera Hammer Jan 01, 2018 16:23
[2018-01-01] MEDS ORDERED: LORazepam 2 MG/ML VIAL IM PRN (16:30)
[2018-01-01] MEDS ORDERED: ALUMINUM/MAGNESIUM/SIMETH 30 ML CUP PO PRN (16:30)
[2018-01-01] MEDS ORDERED: MAGNESIUM HYDROXIDE SUSP 30 ML CUP PO PRN (16:30)
[2018-01-01] MEDS: NICOTINE 21 MG/24 HR PATCH T-DERMAL SCH (17:25)
[2018-01-01 18:16] VITALS: BP 123/77; PULSE 77; RESP 18; O2SAT 99
[2018-01-01 19:16] VITALS: BP 127/87; PULSE 67; RESP 16; TEMP 98.4; O2SAT 98
[2018-01-01] MEDS: diphenhydrAMINE HCL 50 MG CAP PO PRN (22:19)
[2018-01-02] MEDS ORDERED: LEVOTHYROXINE SODIUM 125 MCG TAB PO SCH (06:00)
[2018-01-02 06:31] VITALS: BP 115/56; PULSE 76; RESP 17; TEMP 98.1; O2SAT 97
[2018-01-02 08:42] LABS: BICARBONATE 30.4 MEQ/L (21.0-32.0); BLOOD UREA NITROGEN 17 MG/DL (7-18); CHLORIDE 101 MEQ/L (98-107); CREATININE 1.05 MG/DL (0.60-1.30); GLOMERULAR FILTRATION RATE 80 ML/MIN (>89); GLUCOSE,RANDOM 78 MG/DL (74-106); SODIUM (NA) 136 MEQ/L (136-145)
[2018-01-02 08:43] LABS: CHOLESTEROL 178 MG/DL (120-200); TRIGLYCERIDES 65 MG/DL (42-150)
[2018-01-02 08:46] LABS: CHOLESTEROL/ HDL RATIO 3.75 RATIO; HDL CHOLESTEROL 47.4 MG/DL (40.0-60.0); LDL CHOLESTEROL 118 MG/DL (0-99)
[2018-01-02] MEDS: REMOVE OLD PATCH T-DERMAL SCH (09:00)
[2018-01-02] MEDS: NICOTINE 21 MG/24 HR PATCH T-DERMAL SCH (09:00)
--- NOTE | 2018-01-02 11:25 | HHI.HP ---
Provisional Diagnosis Admission Date Jan 01, 2018 at 16:29 [place] I. 1. Bipolar disorder, presently depressed, severe without psychotic features 2. Cannabis use, rule out use disorder [place] II. Deferred Certification of Person's Competence To Provide Express and Informed Consent I have personally examined Carlos Hubbard , a person being served at [facility] on, Jan 02, 2018 11:25. Express and informed consent means consent voluntarily given in writing, by a competent person, after sufficient explanation and disclosure of the subject matter involved to enable the person to make a knowing and willful decision without any element of force, fraud, deceit, duress, or other form of constraint or coercion. This person is 18 years of age or older, is not now known to be incompetent to consent to treatment with a guardian advocate, and does not have a health care surrogate or proxy currently making medical treatment decisions. I have found this person to be one of the following: [x] Competent to provide express and informed consent, as defined above, for voluntary admission to this facility and is competent to provide express and informed consent for treatment. He/she has the consistent capacity to make well reasoned, willful, and knowing decisions concerning his or her medical or mental health treatment. The person fully and consistently understands the purpose of the admission for examination/placement and is fully capable of personally exercising all rights assured [place] Incompetent to provide express and informed consent to voluntary admission, and this is incompetent to provide express and informed consent to treatment. The person must be transferred to involuntary status and a petition for a guardian advocate filed with the Circuit Court. [] Refusing to provide express and informed consent to voluntary admission but is competent to provide express and informed consent for treatment. The person must be discharged or transferred to involuntary status. Form shall be completed within 24 hours of a person's arrival at the receiving facility and filed in the clinical record of each person: 1. Admitted on a voluntary basis 2. Permitted to provide express and informed consent to his/her own treatment 3. Allowed to transfer from involuntary to voluntary status 4. Prior to permitting a person to consent to his or her own treatment after having been previously found incompetent to consent to treatment. History of Present Illness Capacity: Has Capacity Psych Chief Complaint: Depression/SI HPI Mr. Hubbard is a 37-year-old male with a reported history of bipolar disorder and PTSD from childhood trauma who presented initially voluntarily to [facility] ED for psychiatric evaluation. He was placed under a Mccormick act and sent to the main campus where he was seen by the psychiatric nurse practitioner. Reviewing the electronic medical record, I note that the patient was admitted most recently under Dr. June in November, discharged on Geodon and trazodone at that time. Patient seen and examined with nurse. Chart reviewed. Case discussed with nursing staff. On my examination today, the patient reports that he has been nonadherent with psychotropic medications for the last several weeks at least secondary to being unable to obtain refills of these medications. He notes that he was completely off of his trazodone and Zoloft which he was prescribed and was taking half doses of Geodon. Patient reports that his mood has been fairly unstable in the setting of this nonadherence either "very high or very low." He also endorses suicidal ideation with plan to hang himself although he contracts for safety on the inpatient unit. Focus and concentration are poor. He describes a good deal of anxious rumination. Sleep is poor. Appetite is poor. He endorses hopeless feelings. No hypomanic or manic symptoms presently , although the patient describes a history of what sounds like hypomania in the past. He denies any AVH presently but has experienced command type hallucinations in the past. No delusional material. The remainder of the psychiatric ROS is negative. No physical complaints. Past psychiatric history: The patient reports a history of bipolar disorder and PTSD. He is not currently following with an outpatient psychiatric provider. He has 4 previous psychiatric admissions, most recently here at [facility]. He reports one previous suicide attempt by overdose. He has been on Effexor and Cymbalta in the past without much benefit. He reports that he was most recently prescribed Geodon, Zoloft and trazodone. Family history: The patient reports that his mother has bipolar disorder. A maternal uncle completed suicide. There is no family history of substance use disorder. Chemical dependency history: The patient reports use of cannabis. Urine toxicology was positive for cannabinoids and for benzodiazepines. Social history: Patient resides alone. He is and has 5 children. He is high school educated. Presently unemployed. No or legal history. Denies any access to guns or firearms. He is a Confucianism. Review of Systems Except as stated in HPI: all other systems reviewed are Neg Past Family Social History Coded Allergies: morphine (Verified Allergy, Severe, Swelling, 01/01/18) Past Medical History History of thyroid cancer status post thyroidectomy. Active Scripts Ziprasidone (Geodon) 40 Mg Cap, 40 MG PO BIDPC for health for 30 Days, #60 CAP Prov:Storm June MD 11/29/17 Reported Medications Sertraline (Zoloft) 100 Mg Tab, 150 MG PO DAILY, #30 TAB 0 Refills 01/01/18 Levothyroxine (Levothyroxine) 125 Mcg Tab, 125 MCG PO DAILY for Thyroid, #30 TAB 0 Refills 11/15/17 Trazodone (Trazodone) 150 Mg Tablet, 150 MG PO HS for Control Depression, #30 TAB 0 Refills 11/15/17 Discontinued Scripts Levothyroxine (Synthroid) 125 Mcg Tab, 125 MCG PO DAILY@0600 for health for 30 Days, #30 TAB Prov:Storm June MD 11/29/17 Pantoprazole (Pantoprazole) 40 Mg Tab, 40 MG PO DAILY for health for 30 Days, # 30 TAB Prov:Storm June MD 11/29/17 Trazodone (Trazodone) 100 Mg Tablet, 200 MG PO HS for Control Depression for 30 Days, #60 TAB 0 Refills Prov:Storm June MD 11/29/17 Current Medications Medications (Trade) Dose Ordered Sig/Dolores Route Start Time Stop Time Status Last Admin (Ativan Inj) 0.5 mg Q12H PRN IM 01/01/18 16:30 (Benadryl) 50 mg HS PRN PO 01/01/18 21:00 01/01/18 22:19 (Tylenol) 650 mg Q4H PRN PO 01/01/18 16:30 (Milk Of Magnesia Liq) 30 ml DAILY PRN PO 01/01/18 16:30 (Mag-Al Plus Susp Liq) 30 ml Q6H PRN PO 01/01/18 16:30 (Habitrol 21 Mg Patch.24 Hr) 1 patch DAILY T-DERMAL 01/01/18 16:30 01/02/18 09:00 Miscellaneous Information 1 DAILY T-DERMAL 01/02/18 09:00 01/02/18 09:00 (Synthroid) 150 mcg DAILY@0600 PO 01/03/18 06:00 Physical Exam Physical examination completed by ED provider at [facility]. On my examination today, the patient appears to be in no acute physical distress. No motor abnormalities noted. Labs and vitals reviewed: Vital Signs Vital Signs Date Time Temp Pulse Resp B/P (MAP) Pulse Ox O2 Delivery O2 Flow Rate FiO2 01/02/18 06:31 98.1 76 17 115/56 (75) 97 01/01/18 18:16 Room Air Lab Results Item Value Date Time White Blood Count 6.2 TH/MM3 01/01/18 1155 Hemoglobin 14.7 GM/DL 01/01/18 1155 Platelet Count 267 TH/MM3 01/01/18 1155 Sodium Level 136 MEQ/L 01/02/18 0649 Potassium Level 4.0 MEQ/L 01/02/18 0649 Chloride Level 101 MEQ/L 01/02/18 0649 Carbon Dioxide Level 30.4 MEQ/L 01/02/18 0649 Blood Urea Nitrogen 17 MG/DL 01/02/18 0649 Creatinine 1.05 MG/DL 01/02/18 0649 Estimat Glomerular Filtration Rate 80 ML/MIN L 01/02/18 0649 Random Glucose 78 MG/DL 01/02/18 0649 Hemoglobin A1c 5.0 % 01/02/18 0649 Aspartate Amino Transf (AST/SGOT) 10 U/L L 01/01/18 1155 Alanine Aminotransferase (ALT/SGPT) 27 U/L 01/01/18 1155 Alkaline Phosphatase 70 U/L 01/01/18 1155 Thyroid Stimulating Hormone 3rd Gen 19.700 uIU/ML H 01/01/18 1155 Urine Benzodiazepines Screen POS H 01/01/18 1155 Urine Cannabinoids Screen POS H 01/01/18 1155 EKG NSR QTc 395ms, not prolonged. Mental Status Examination Appearance: Appropriate Consciousness: Alert Orientation: x4 Motor Activity: Other (no motor abnormalities noted) Speech: Unremarkable Language: Adequate Fund of Knowledge: Adequate Attention and Concentration: Adequate Memory: Unremarkable Mood: Other (depressed) Affect: Other (restricted) Thought Process & Associations: Intact, Logical, Linear Thought Content: Appropriate Hallucination Type: None Delusion Type: None Suicidal Ideation: Yes Suicidal Plan: Yes (Hanging) Suicidal Intention: No (contracts for safety on the inpatient unit) Homicidal Ideation: No Homicidal Plan: No Homicidal Intention: No Insight: Adequate Judgment: Adequate Assessment & Plan Problem List: (1) Bipolar disorder current episode depressed ICD Codes: F31.30 - Bipolar disorder, current episode depressed, mild or moderate severity, unspecified Status: Acute (2) Use of cannabis ICD Codes: F12.90 - Cannabis use, unspecified, uncomplicated Assessment & Plan 37-year-old male with psychiatric history as detailed above who presents in transfer from [facility] ED under a Mccormick act. On my examination today, the patient reports worsening bipolar depression in the setting of medication nonadherence. However, the patient reports that even when he was taking his psychotropic medications as ordered, he didn't feel like they were helping. He would like to adjust his psychotropics, in particular to replace the Geodon with something else for mood stabilization. We discussed his options in this regard in great detail and settle on a trial of Seroquel. Patient requires psychiatric hospitalization at this time for safety, observation and stabilization. Admit inpatient. Voluntary status. Initiate Seroquel 50 mg twice daily for mood stabilization with plans to titrate to effect. Continue Zoloft 150 mg daily as ordered. Atarax as needed for anxiety, Benadryl as needed for sleep. R/B/A for meds discussed with patient. Consult to the hospitalist placed by the nurse practitioner in the ED. Continue Synthroid. Vitals every shift. Counselor to see and obtain collateral. Disposition planning. Estimated length of stay: 5-7 days. Discharge Planning Pending psychiatric stabilization. Request HC Surrog/Guard Advoc?: No Problem Qualifiers (1) Bipolar disorder current episode depressed: Qualified Codes: F31.4 - Bipolar disorder, current episode depressed, severe, without psychotic features Eagle Mendez MD Jan 02, 2018 11:25
[2018-01-02] MEDS: SERTRALINE HCL 50 MG TAB PO SCH (11:30)
--- NOTE | 2018-01-02 14:04 | PD.CONS ---
[facility] By DR EDMUNDO PHOENIX Reason for Consult MEDICAL MANAGEMENT Primary Care Physician No Primary Care Physician Diagnoses: (1) Hypothyroidism (2) Use of cannabis (3) Depression with suicidal ideation (4) Bipolar disorder current episode depressed (5) History of thyroid cancer (6) Bipolar disorder, curr episode depressed, severe, w/psychotic features History of Present Illness Patient is a 37-year-old male who was initially brought into [facility] in the emergency department for Mccormick act for suicidal ideation. Patient reports severe depression has history of thyroid cancer. States his thyroid was removed several months ago. Feels very depressed and having suicidal thoughts patient thought about hanging himself but did not do that came to the hospital instead we have been asked to see him regarding medical management. His past medical history is significant for thyroid cancer and Juan's disease. As well as bipolar disorder Review of Systems Constitutional: COMPLAINS OF: Fatigue, DENIES: Diaphoretic episodes, Fever, Weight gain, Weight loss, Chills, Dizziness, Change in appetite, Night Sweats Endocrine: DENIES: Heat/cold intolerance, Polydipsia, Polyuria, Polyphagia Eyes: DENIES: Blurred vision, Diplopia, Eye inflammation, Eye pain, Vision loss , Photosensitivity, Double Vision Ears, nose, mouth, throat: DENIES: Tinnitus, Hearing loss, Vertigo, Nasal discharge, Oral lesions, Throat pain, Hoarseness, Ear Pain, Running Nose, Epistaxis Respiratory: DENIES: Apneas, Cough, Snoring, Wheezing, Hemoptysis, Sputum production, Shortness of breath Cardiovascular: DENIES: Chest pain, Palpitations, Syncope, Dyspnea on Exertion , PND, Lower Extremity Edema, Orthopnea, Claudication Gastrointestinal: DENIES: Abdominal pain, Black stools, Bloody stools, Constipation, Diarrhea, Nausea, Vomiting, Difficulty Swallowing Genitourinary: DENIES: Sexual dysfunction, Urinary frequency, Urinary incontinence, Urgency, Hematuria, Dysuria, Nocturia, Penile Discharge, Testicular Pain Musculoskeletal: DENIES: Joint pain, Muscle aches, Stiffness, Joint Swelling Integumentary: DENIES: Abnormal pigmentation, Nail changes, Pruritus, Rash Hematologic/lymphatic: DENIES: Bruising, Lymphadenopathy Immunologic/allergic: DENIES: Eczema, Urticaria Neurologic: DENIES: Abnormal gait, Headache, Localized weakness, Paresthesias, Seizures, Speech Problems, Tremor Psychiatric: COMPLAINS OF: Anxiety, Confusion, Mood changes, Depression, Suicidal Ideation, DENIES: Hallucinations, Agitation, Homicidal Ideation, Delusions Except as stated in HPI: all other systems reviewed are Neg Past Family Social History Allergies: Coded Allergies: morphine (Verified Allergy, Severe, Swelling, 01/01/18) Past Medical History 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 Anxiety Depression Bipolar History of chemotherapy with thyroid cancer Past Surgical History Thyroidectomy total thyroidectomy history of chemotherapy Lymph nodes removal Reported Medications Reported Meds & Active Scripts Active Geodon (Ziprasidone) 40 Mg Cap 40 Mg PO BIDPC 30 Days Reported Zoloft (Sertraline HCl) 100 Mg Tab 150 Mg PO DAILY Levothyroxine (Levothyroxine Sodium) 125 Mcg Tab 125 Mcg PO DAILY Trazodone (Trazodone HCl) 150 Mg Tablet 150 Mg PO HS Active Ordered Medications Current Medications Lorazepam (Ativan Inj) 0.5 mg Q12H PRN IM MODERATE TO SEVERE ANXIETY; Start at 16:30; Stop 01/02/18 at 11:27; Status DC Diphenhydramine HCl (Benadryl) 50 mg HS PRN PO INSOMNIA Last administered on at 22:19; Start 01/01/18 at 21:00 Acetaminophen (Tylenol) 650 mg Q4H PRN PO Pain 1-5 or Temp >101F; Start at 16:30 Magnesium Hydroxide (Milk Of Magnesia Liq) 30 ml DAILY PRN PO CONSTIPATION; Start 01/01/18 at 16:30 Al Hydrox/Mg Hydrox/Simethicone (Mag-Al Plus Susp Liq) 30 ml Q6H PRN PO DYSPEPSIA; Start 01/01/18 at 16:30 Nicotine (Habitrol 21 Mg Patch.24 Hr) 1 patch DAILY T-DERMAL Last administered on 01/02/18at 09:00; Start 01/01/18 at 16:30 Miscellaneous Information 1 DAILY T-DERMAL Last administered on 01/02/18at 09:00 ; Start 01/02/18 at 09:00 Levothyroxine Sodium (Synthroid) 125 mcg DAILY@0600 PO ; Start 01/02/18 at 06:00 ; Stop 01/02/18 at 08:48; Status DC Levothyroxine Sodium (Synthroid) 150 mcg DAILY@0600 PO ; Start 01/03/18 at 06:00 Quetiapine Fumarate (SEROquel) 50 mg BID PO ; Start 01/02/18 at 21:00 Sertraline HCl (Zoloft) 150 mg DAILY PO Last administered on 01/02/18at 11:30; Start 01/02/18 at 11:30 Hydroxyzine HCl (Atarax) 50 mg Q6H PRN PO ANXIETY; Start 01/02/18 at 11:30 Family History Family history of suicide Mother has bipolar Social History Rare alcohol Tobacco abuse 1 pack per day Marijuana use Physical Exam Vital Signs Vital Signs Date Time Temp Pulse Resp B/P (MAP) Pulse Ox O2 Delivery O2 Flow Rate FiO2 01/02/18 06:31 98.1 76 17 115/56 (75) 97 01/01/18 19:16 98.4 67 16 127/87 (100) 98 01/01/18 18:59 01/01/18 18:16 77 18 123/77 (92) 99 Room Air Physical Exam GENERAL: This is a well-nourished, well-developed patient, in no apparent distress. SKIN: No rashes, ecchymoses or lesions. Cool and dry. HEAD: Atraumatic. Normocephalic. No temporal or scalp tenderness. EYES: Pupils equal round and reactive. Extraocular motions intact. No scleral icterus. No injection or drainage. ENT: Nose without bleeding, purulent drainage or septal hematoma. Throat without erythema, tonsillar hypertrophy or exudate. Uvula midline. Airway patent. NECK: Trachea midline. No JVD or lymphadenopathy. Supple, nontender, no meningeal signs. CARDIOVASCULAR: Regular rate and rhythm without murmurs, gallops, or rubs. S1- S2 no S3-S4 RESPIRATORY: Clear to auscultation. Breath sounds equal bilaterally. No wheezes , rales, or rhonchi. GASTROINTESTINAL: Abdomen soft, non-tender, nondistended. No hepato-splenomegaly , or palpable masses. No guarding. MUSCULOSKELETAL: Extremities without clubbing, cyanosis, or edema. No joint tenderness, effusion, or edema noted. No calf tenderness. Negative Homans sign bilaterally. NEUROLOGICAL: Awake and alert. Cranial nerves II through XII intact. Motor and sensory grossly within normal limits. Five out of 5 muscle strength in all muscle groups. Normal speech. Insight and judgment is limited Mood and behavior are somewhat appropriate Laboratory Laboratory Tests Test 01/02/18 06:49 Blood Urea Nitrogen 17 Creatinine 1.05 Random Glucose 78 Calcium Level 9.0 Sodium Level 136 Potassium Level 4.0 Chloride Level 101 Carbon Dioxide Level 30.4 Anion Gap 5 Estimat Glomerular Filtration Rate 80 Hemoglobin A1c 5.0 Triglycerides Level 65 Cholesterol Level 178 LDL Cholesterol 118 HDL Cholesterol 47.4 Cholesterol/HDL Ratio 3.75 Result Diagram: 01/02/18 0649 Imaging None this admission Assessment and Plan Problem List: (1) Use of cannabis ICD Code: F12.90 - Cannabis use, unspecified, uncomplicated (2) Bipolar disorder, curr episode depressed, severe, w/psychotic features ICD Code: F31.5 - Bipolar disorder, current episode depressed, severe, with psychotic features (3) History of thyroid cancer ICD Code: Z85.850 - Personal history of malignant neoplasm of thyroid (4) Hypothyroidism ICD Code: E03.9 - Hypothyroidism, unspecified (5) Depression with suicidal ideation ICD Code: F32.9 - Major depressive disorder, single episode, unspecified; R45.851 - Suicidal ideations Status: Acute (6) Bipolar disorder current episode depressed ICD Code: F31.30 - Bipolar disorder, current episode depressed, mild or moderate severity, unspecified Status: Acute Assessment and Plan Mccormick acted for suicidal ideation and depression currently under psychiatric care History of thyroid cancer treated and recurrence treated again--outpatient follow-up recommended with oncology Will need thyroid uptake scan as outpatient Tobacco abuse recommend cessation Hypothyroidism increase his Synthroid patient sounds like he has been noncompliant with his medications History of medical malignant noncompliant Code Status Full code Discussed Condition With Patient and RN Problem Qualifiers (1) Bipolar disorder current episode depressed: Qualified Codes: F31.4 - Bipolar disorder, current episode depressed, severe, without psychotic features Marcelo Armendariz DO Jan 02, 2018 14:04
[2018-01-02] MEDS: hydrOXYzine HCL 50 MG TAB PO PRN ×2 (16:00→21:31)
[2018-01-02 18:22] VITALS: BP 109/65; PULSE 78; RESP 18; TEMP 98.4; O2SAT 99
[2018-01-02] MEDS: QUEtiapine FUMARATE 25 MG TAB PO SCH (21:31)
[2018-01-03 05:36] VITALS: BP 125/86; PULSE 87; RESP 18; TEMP 97.9; O2SAT 97
[2018-01-03] MEDS ORDERED: LEVOTHYROXINE SODIUM 150 MCG TAB PO SCH (06:00)
[2018-01-03] MEDS: NICOTINE 21 MG/24 HR PATCH T-DERMAL SCH (08:31)
[2018-01-03] MEDS: QUEtiapine FUMARATE 25 MG TAB PO SCH (08:31)
[2018-01-03] MEDS: REMOVE OLD PATCH T-DERMAL SCH (08:32)
[2018-01-03] MEDS: SERTRALINE HCL 50 MG TAB PO SCH (08:32)
--- NOTE | 2018-01-03 09:41 | EKG ---
Date Performed: 01/02/2018 Time Performed: 08:41:11 PTAGE: 37 years EKG: Sinus rhythm NORMAL ECG PREVIOUS TRACING : 11/26/2017 15.44 Since the prior tracing, there has been no significant desouza DOCTOR: Eagle Antunez Interpretating Date/Time 01/03/2018 09:38:31
--- NOTE | 2018-01-03 12:08 | HHI.PYPN ---
Subjective Chief Complaint: Depression/SI Remarks Patient seen and examined with nurse. Chart reviewed. Case discussed with nursing staff. Patient noted to have slept poorly overnight and had issues with nausea/vomiting. No behavioral issues noted. On my examination today, the patient reports that he has been experiencing episodic nausea for several weeks associated with palpitations and paresthesias in his hands as well as a sense of fullness in the head. He thinks that he is having panic attacks. Mood is "antisocial" by which I believe that he means he is not feeling gregarious today. He is somewhat anxious. Mood remains depressed. The patient does note that he had issues with bipolar disorder prior to his thyroid cancer, but that the nature of his symptoms changed after his diagnosis. Denies side effects from medications. We discussed titration of patient's nighttime dose of Seroquel to help with sleep, and the patient is agreeable to making this change. We also discussed sleep hygiene. Remains a little nauseated now but no other physical complaints. Review of Systems Except as stated in HPI: all other systems reviewed are Neg Mental Status Examination Appearance: Appropriate Consciousness: Alert Orientation: x4 Motor Activity: Other (no motor abnormalities noted) Speech: Unremarkable Language: Adequate Fund of Knowledge: Adequate Attention and Concentration: Adequate Memory: Unremarkable Mood: Anxious, Other (depressed) Affect: Blunt Thought Process & Associations: Intact, Logical, Goal directed, Linear Thought Content: Appropriate Hallucination Type: None Delusion Type: None Suicidal Ideation: No Suicidal Plan: No Suicidal Intention: No Homicidal Ideation: No Homicidal Plan: No Homicidal Intention: No Insight: Adequate Judgment: Adequate Results Labs Labs reviewed. No new labs. Vitals/IOs Vital Signs Date Time Temp Pulse Resp B/P (MAP) Pulse Ox O2 Delivery O2 Flow Rate FiO2 01/03/18 05:36 97.9 87 18 125/86 (99) 97 01/01/18 18:16 Room Air Assessment & Plan Problem List: (1) Bipolar disorder current episode depressed ICD Codes: F31.30 - Bipolar disorder, current episode depressed, mild or moderate severity, unspecified Status: Acute (2) Use of cannabis ICD Codes: F12.90 - Cannabis use, unspecified, uncomplicated Assessment & Plan Titrate Seroquel to 50 mg in the morning and 150 mg at bedtime. Please consider further titration of this agent tomorrow and over the weekend with target dose of 300-400 mg total daily dose. R/B/A for medication changes discussed with patient. Check BMP, Mg, Phos in morning for electrolytes given emesis. Hospitalist input noted and appreciated. Continue to monitor on the inpatient unit. Continue other medications and care as ordered. Justification for Cont. Inpt. Medication changes. Discharge Planning Pending psychiatric stabilization. Possible discharge beginning of next week. Request HC Surrog/Guard Advoc?: No Problem Qualifiers (1) Bipolar disorder current episode depressed: Qualified Codes: F31.4 - Bipolar disorder, current episode depressed, severe, without psychotic features Eagle Mendez MD Jan 03, 2018 12:08
[2018-01-03] MEDS ORDERED: PILL SPLITTER OTHER PRN (12:15)
--- NOTE | 2018-01-03 14:12 | HHI.PR ---
Subjective Remarks Patient is a 37-year-old male who was initially brought into [facility] in the emergency department for Mccormick act for suicidal ideation. Patient reports severe depression has history of thyroid cancer. States his thyroid was removed several months ago. Feels very depressed and having suicidal thoughts patient thought about hanging himself but did not do that came to the hospital instead we have been asked to see him regarding medical management. His past medical history is significant for thyroid cancer and Juan's disease. As well as bipolar disorder 3-1 no new complaints NEEDS TO BE ON HIGHER DOSE OF SYNTHROID WILL INCREASE TO 200MCG DAILY NEEDS OUTPATIENT RAIU OF THYROID NEEDS FOLLOW UP WITH ONCOLOGY AND ENDOCRINE IF ABLE TO SEE BOTH WILL SIGN OFF Objective Vitals Vital Signs Date Time Temp Pulse Resp B/P (MAP) Pulse Ox O2 Delivery O2 Flow Rate FiO2 01/03/18 05:36 97.9 87 18 125/86 (99) 97 01/02/18 18:22 98.4 78 18 109/65 (80) 99 I/O 01/02/18 01/02/18 01/02/18 01/03/18 01/03/18 01/03/18 07:00 15:00 23:00 07:00 15:00 23:00 Intake Total 360 ml Balance 360 ml Intake Oral 360 ml Result Diagram: 01/02/18 0649 Other Results Laboratory Tests Test 01/02/18 06:49 Blood Urea Nitrogen 17 MG/DL Creatinine 1.05 MG/DL Random Glucose 78 MG/DL Calcium Level 9.0 MG/DL Sodium Level 136 MEQ/L Potassium Level 4.0 MEQ/L Chloride Level 101 MEQ/L Carbon Dioxide Level 30.4 MEQ/L Anion Gap 5 MEQ/L Estimat Glomerular Filtration Rate 80 ML/MIN Hemoglobin A1c 5.0 % Triglycerides Level 65 MG/DL Cholesterol Level 178 MG/DL LDL Cholesterol 118 MG/DL HDL Cholesterol 47.4 MG/DL Cholesterol/HDL Ratio 3.75 RATIO Objective Remarks GENERAL: This is a well-nourished, well-developed patient, in no apparent distress. SKIN: No rashes, ecchymoses or lesions. Cool and dry. HEAD: Atraumatic. Normocephalic. No temporal or scalp tenderness. EYES: Pupils equal round and reactive. Extraocular motions intact. No scleral icterus. No injection or drainage. ENT: Nose without bleeding, purulent drainage or septal hematoma. Throat without erythema, tonsillar hypertrophy or exudate. Uvula midline. Airway patent. NECK: Trachea midline. No JVD or lymphadenopathy. Supple, nontender, no meningeal signs. CARDIOVASCULAR: Regular rate and rhythm without murmurs, gallops, or rubs. S1- S2 no S3-S4 RESPIRATORY: Clear to auscultation. Breath sounds equal bilaterally. No wheezes , rales, or rhonchi. GASTROINTESTINAL: Abdomen soft, non-tender, nondistended. No hepato-splenomegaly , or palpable masses. No guarding. MUSCULOSKELETAL: Extremities without clubbing, cyanosis, or edema. No joint tenderness, effusion, or edema noted. No calf tenderness. Negative Homans sign bilaterally. NEUROLOGICAL: Awake and alert. Cranial nerves II through XII intact. Motor and sensory grossly within normal limits. Five out of 5 muscle strength in all muscle groups. Normal speech. Insight and judgment is limited Mood and behavior are somewhat appropriate Procedures NONE Medications and IVs Current Medications Lorazepam (Ativan Inj) 0.5 mg Q12H PRN IM MODERATE TO SEVERE ANXIETY; Start at 16:30; Stop 01/02/18 at 11:27; Status DC Diphenhydramine HCl (Benadryl) 50 mg HS PRN PO INSOMNIA Last administered on at 22:19; Start 01/01/18 at 21:00 Acetaminophen (Tylenol) 650 mg Q4H PRN PO Pain 1-5 or Temp >101F; Start at 16:30 Magnesium Hydroxide (Milk Of Magnesia Liq) 30 ml DAILY PRN PO CONSTIPATION; Start 01/01/18 at 16:30 Al Hydrox/Mg Hydrox/Simethicone (Mag-Al Plus Susp Liq) 30 ml Q6H PRN PO DYSPEPSIA; Start 01/01/18 at 16:30 Nicotine (Habitrol 21 Mg Patch.24 Hr) 1 patch DAILY T-DERMAL Last administered on 01/03/18at 08:31; Start 01/01/18 at 16:30 Miscellaneous Information 1 DAILY T-DERMAL Last administered on 01/03/18at 08:32 ; Start 01/02/18 at 09:00 Levothyroxine Sodium (Synthroid) 125 mcg DAILY@0600 PO ; Start 01/02/18 at 06:00 ; Stop 01/02/18 at 08:48; Status DC Levothyroxine Sodium (Synthroid) 150 mcg DAILY@0600 PO Last administered on 01/03at 05:56; Start 01/03/18 at 06:00 Quetiapine Fumarate (SEROquel) 50 mg BID PO Last administered on 01/03/18at 08:31 ; Start 01/02/18 at 21:00; Stop 01/03/18 at 12:10; Status DC Sertraline HCl (Zoloft) 150 mg DAILY PO Last administered on 01/03/18at 08:32; Start 01/02/18 at 11:30 Hydroxyzine HCl (Atarax) 50 mg Q6H PRN PO ANXIETY Last administered on at 21:31; Start 01/02/18 at 11:30 Quetiapine Fumarate (SEROquel) 50 mg DAILY PO ; Start 01/04/18 at 09:00 Quetiapine Fumarate (SEROquel) 150 mg HS PO ; Start 01/03/18 at 21:00 Miscellaneous (Pill Splitter) 1 ea UNSCH PRN OTHER SEE LABEL COMMENTS; Start at 12:15 A/P Problem List: (1) Use of cannabis ICD Code: F12.90 - Cannabis use, unspecified, uncomplicated (2) Bipolar disorder, curr episode depressed, severe, w/psychotic features ICD Code: F31.5 - Bipolar disorder, current episode depressed, severe, with psychotic features (3) History of thyroid cancer ICD Code: Z85.850 - Personal history of malignant neoplasm of thyroid (4) Hypothyroidism ICD Code: E03.9 - Hypothyroidism, unspecified (5) Depression with suicidal ideation ICD Code: F32.9 - Major depressive disorder, single episode, unspecified; R45.851 - Suicidal ideations Status: Acute (6) Bipolar disorder current episode depressed ICD Code: F31.30 - Bipolar disorder, current episode depressed, mild or moderate severity, unspecified Status: Acute Assessment and Plan Mccormick acted for suicidal ideation and depression currently under psychiatric care History of thyroid cancer treated and recurrence treated again--outpatient follow-up recommended with oncology Will need thyroid uptake scan as outpatient Tobacco abuse recommend cessation Hypothyroidism increase his Synthroid patient sounds like he has been noncompliant with his medications History of medical malignant noncompliant WILL SIGN OFF Discharge Planning PENDING PSYCHIATRIC CLEARANCE Problem Qualifiers (1) Bipolar disorder current episode depressed: Qualified Codes: F31.4 - Bipolar disorder, current episode depressed, severe, without psychotic features Marcelo Armendariz DO Jan 03, 2018 14:12
[2018-01-03] MEDS: hydrOXYzine HCL 50 MG TAB PO PRN (14:26)
[2018-01-03 17:45] VITALS: BP 132/93; PULSE 80; RESP 18; TEMP 98.2; O2SAT 98
[2018-01-03] MEDS: QUEtiapine FUMARATE 100 MG TAB PO SCH (20:09)
[2018-01-04] MEDS: hydrOXYzine HCL 50 MG TAB PO PRN (02:10)
[2018-01-04 05:25] VITALS: BP 124/83; PULSE 73; RESP 16; TEMP 98; O2SAT 97
[2018-01-04] MEDS: LEVOTHYROXINE SODIUM 200 MCG TAB PO SCH (05:32)
[2018-01-04] MEDS: SERTRALINE HCL 50 MG TAB PO SCH (08:43)
[2018-01-04] MEDS: QUEtiapine FUMARATE 25 MG TAB PO SCH (08:43)
[2018-01-04] MEDS: NICOTINE 21 MG/24 HR PATCH T-DERMAL SCH (08:43)
[2018-01-04] MEDS: REMOVE OLD PATCH T-DERMAL SCH (09:00)
[2018-01-04 10:33] LABS: BICARBONATE 31.3 MEQ/L (21.0-32.0); CALCIUM 8.6 MG/DL (8.5-10.1); CREATININE 1.14 MG/DL (0.60-1.30)
[2018-01-04 10:34] LABS: PHOSPHORUS 2.3 MG/DL (2.5-4.9)
--- NOTE | 2018-01-04 14:29 | HHI.PYPN ---
Subjective Chief Complaint: Depression/SI Remarks Reviewed patient's electronic medical record, labs, and discussed with staff. Staff report patient has been active with groups but remained somewhat seclusive. He was located sitting outside the Courtyard. Patient evaluated in the exam room with nurse present. He reports feeling "better" however, he states he still not sleeping well. He reports that Benadryl does not work for him. States his last episodes of thoughts of self-harm occurred yesterday. He requested trazodone for sleep. Upon reviewing his current medications, it was noted that he recently had an increase of Seroquel dose. Encouraged patient to try the Benadryl again as the last time he took it he was not on the Seroquel. Advised patient that Dr. Mena has ordered oncology and endocrinology consults. Mental Status Examination Appearance: Appropriate Consciousness: Alert Orientation: x4 Motor Activity: Normal gait Speech: Unremarkable Language: Adequate Fund of Knowledge: Adequate Attention and Concentration: Adequate Memory: Unremarkable Mood: Anxious, Other (depressed) Affect: Blunt Thought Process & Associations: Intact, Logical, Goal directed, Linear Thought Content: Appropriate Hallucination Type: None Delusion Type: None Suicidal Ideation: No Suicidal Plan: No Suicidal Intention: No Homicidal Ideation: No Homicidal Plan: No Homicidal Intention: No Insight: Adequate Judgment: Adequate Results Labs Test 01/04/18 08:40 Blood Urea Nitrogen 21 MG/DL Creatinine 1.14 MG/DL Random Glucose 81 MG/DL Calcium Level 8.6 MG/DL Phosphorus Level 2.3 MG/DL Magnesium Level 2.0 MG/DL Sodium Level 135 MEQ/L Potassium Level 3.6 MEQ/L Chloride Level 96 MEQ/L Carbon Dioxide Level 31.3 MEQ/L Anion Gap 8 MEQ/L Estimat Glomerular Filtration Rate 73 ML/MIN Vitals/IOs Vital Signs Date Time Temp Pulse Resp B/P (MAP) Pulse Ox O2 Delivery O2 Flow Rate FiO2 01/04/18 05:25 98.0 73 16 124/83 (97) 97 01/01/18 18:16 Room Air Assessment & Plan Problem List: (1) Bipolar disorder current episode depressed ICD Codes: F31.30 - Bipolar disorder, current episode depressed, mild or moderate severity, unspecified Status: Acute (2) Use of cannabis ICD Codes: F12.90 - Cannabis use, unspecified, uncomplicated Assessment & Plan Estimated LOS: Patient continues to endorse intermittent thoughts of self-harm. We will continue with treatment plan, he will stay admitted to inpatient until psychiatrically stabilized Justification for Cont. Inpt. It is likely that moving this patient to a lower level of care would result in decompensation. Request HC Surrog/Guard Advoc?: No Problem Qualifiers (1) Bipolar disorder current episode depressed: Qualified Codes: F31.4 - Bipolar disorder, current episode depressed, severe, without psychotic features Sameera Hammer Jan 04, 2018 14:29
[2018-01-04 17:40] VITALS: BP 127/65; PULSE 78; RESP 16; TEMP 98.3; O2SAT 98
[2018-01-04] MEDS: diphenhydrAMINE HCL 50 MG CAP PO PRN (20:38)
[2018-01-04] MEDS: QUEtiapine FUMARATE 100 MG TAB PO SCH (20:38)
[2018-01-05] MEDS: hydrOXYzine HCL 50 MG TAB PO PRN ×2 (04:48→13:07)
[2018-01-05 05:34] VITALS: BP 133/99; PULSE 75; RESP 18; TEMP 97.4; O2SAT 96
[2018-01-05] MEDS: LEVOTHYROXINE SODIUM 200 MCG TAB PO SCH (06:07)
[2018-01-05] MEDS: REMOVE OLD PATCH T-DERMAL SCH (09:00)
[2018-01-05] MEDS: NICOTINE 21 MG/24 HR PATCH T-DERMAL SCH (09:09)
[2018-01-05] MEDS: SERTRALINE HCL 50 MG TAB PO SCH (09:09)
[2018-01-05] MEDS: QUEtiapine FUMARATE 25 MG TAB PO SCH (09:09)
--- NOTE | 2018-01-05 14:02 | HHI.PYPN ---
Subjective Chief Complaint: Depression/SI Remarks Patient was seen and case discussed with nursing. Patient is pleasant and cooperative with exam. She is complaint today is an intermittent "chest tightness." He says this comes about 10 minutes is quite distressing. Patient says his mood is improving denies suicidal or homicidal ideation intent or plan. Patient says an EKG was done on admission and was negative Mental Status Examination Appearance: Appropriate Consciousness: Alert Orientation: x4 Motor Activity: Normal gait Speech: Unremarkable Language: Adequate Fund of Knowledge: Adequate Attention and Concentration: Adequate Memory: Unremarkable Mood: Anxious, Other (depressed) Affect: Blunt Thought Process & Associations: Intact, Logical, Goal directed, Linear Thought Content: Appropriate Hallucination Type: None Delusion Type: None Suicidal Ideation: No Suicidal Plan: No Suicidal Intention: No Homicidal Ideation: No Homicidal Plan: No Homicidal Intention: No Insight: Adequate Judgment: Adequate Results Vitals/IOs Vital Signs Date Time Temp Pulse Resp B/P (MAP) Pulse Ox O2 Delivery O2 Flow Rate FiO2 01/05/18 05:34 97.4 75 18 133/99 (110) 96 01/01/18 18:16 Room Air Assessment & Plan Problem List: (1) Bipolar disorder current episode depressed ICD Codes: F31.30 - Bipolar disorder, current episode depressed, mild or moderate severity, unspecified Status: Acute (2) Use of cannabis ICD Codes: F12.90 - Cannabis use, unspecified, uncomplicated Assessment & Plan Consult hospitalist, order EKG Justification for Cont. Inpt. Patient would decompensate in a less restrictive setting Request HC Surrog/Guard Advoc?: No Problem Qualifiers (1) Bipolar disorder current episode depressed: Qualified Codes: F31.4 - Bipolar disorder, current episode depressed, severe, without psychotic features Nimesh Gomez DO Jan 05, 2018 14:02
--- NOTE | 2018-01-05 16:30 | HHI.PR ---
Subjective Remarks Reconsult for chest tightness. Patient seen and examined. Patient states that he developed dull chest pressure like sensation last night with associated shortness of breath. Patient states it's been constant and is improved with ambulation. He endorses associated diaphoresis as well as nausea and single episode of vomiting last night. He also reports numbness and tingling in both arms extending down into the hands. He endorses associated dizziness. Denies any cough. Denies any fever or chills. Patient does have a tobacco use history. He does not have first-degree relative with significant cardiac history. He denies any personal cardiac history. He does admit to anxiety. Objective Vitals Vital Signs Date Time Temp Pulse Resp B/P (MAP) Pulse Ox O2 Delivery O2 Flow Rate FiO2 01/05/18 05:34 97.4 75 18 133/99 (110) 96 01/04/18 17:40 98.3 78 16 127/65 (85) 98 Result Diagram: 01/04/18 0851 Objective Remarks GENERAL: Well-nourished, well-developed male patient in NAD. Awake and alert. Appears comfortable. Not diaphoretic. SKIN: Warm and dry. No rash. HEAD: Normocephalic. Atraumatic. EYES: Pupils equal and round. No scleral icterus. No injection or drainage. ENT: No nasal bleeding or discharge. Mucous membranes pink and moist. NECK: Supple. Trachea midline. CARDIOVASCULAR: Regular rate and rhythm. S1, S2 noted. No murmur appreciated. RESPIRATORY: Nonlabored. Clear to auscultation. Breath sounds equal bilaterally. GASTROINTESTINAL: Abdomen soft, non-tender, nondistended. Normoactive bowel sounds x4. MUSCULOSKELETAL: No obvious deformities. Extremities without clubbing, cyanosis , or edema. NEUROLOGICAL: Awake and alert. No obvious cranial nerve deficits. Motor grossly within normal limits. 5/5 muscle strength in bilateral upper and lower extremities. No focal neurologic findings appreciated. Normal speech. Procedures NONE Medications and IVs Current Medications Medications (Trade) Dose Ordered Sig/Dolores Route Start Time Stop Time Status Last Admin (Benadryl) 50 mg HS PRN PO 01/01/18 21:00 01/04/18 20:38 (Tylenol) 650 mg Q4H PRN PO 01/01/18 16:30 (Milk Of Magnesia Liq) 30 ml DAILY PRN PO 01/01/18 16:30 (Mag-Al Plus Susp Liq) 30 ml Q6H PRN PO 01/01/18 16:30 (Habitrol 21 Mg Patch.24 Hr) 1 patch DAILY T-DERMAL 01/01/18 16:30 01/05/18 09:09 Miscellaneous Information 1 DAILY T-DERMAL 01/02/18 09:00 01/05/18 09:00 (Zoloft) 150 mg DAILY PO 01/02/18 11:30 01/05/18 09:09 (Atarax) 50 mg Q6H PRN PO 01/02/18 11:30 01/05/18 13:07 (SEROquel) 50 mg DAILY PO 01/04/18 09:00 01/05/18 09:09 (SEROquel) 150 mg HS PO 01/03/18 21:00 01/04/18 20:38 (Pill Splitter) 1 ea UNSCH PRN OTHER 01/03/18 12:15 (Synthroid) 200 mcg DAILY@0600 PO 01/04/18 06:00 01/05/18 06:07 A/P Problem List: (1) Use of cannabis ICD Code: F12.90 - Cannabis use, unspecified, uncomplicated (2) Bipolar disorder, curr episode depressed, severe, w/psychotic features ICD Code: F31.5 - Bipolar disorder, current episode depressed, severe, with psychotic features (3) History of thyroid cancer ICD Code: Z85.850 - Personal history of malignant neoplasm of thyroid (4) Hypothyroidism ICD Code: E03.9 - Hypothyroidism, unspecified (5) Depression with suicidal ideation ICD Code: F32.9 - Major depressive disorder, single episode, unspecified; R45.851 - Suicidal ideations Status: Acute (6) Bipolar disorder current episode depressed ICD Code: F31.30 - Bipolar disorder, current episode depressed, mild or moderate severity, unspecified Status: Acute Assessment and Plan 37-year-old male with 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 Depression Suicidal ideation -Management per psychiatric team Chest pain,atypical Suspect secondary to anxiety -obtain serial troponins and EKGs -CXR ordered -monitor History of thyroid cancer status post treatment with history of recurrence and subsequent treatment -Recommend outpatient follow-up with oncology and endocrinology -Patient will need thyroid uptake scan as outpatient Hypothyroidism -TSH 19.7000 -Synthroid dose increased this visit to 200mcg daily Tobacco use -Discussed importance of cessation DVT prophylaxis -Patient is ambulatory Problem Qualifiers (1) Bipolar disorder current episode depressed: Qualified Codes: F31.4 - Bipolar disorder, current episode depressed, severe, without psychotic features Rox Mcgregor Jan 05, 2018 16:30
--- NOTE | 2018-01-05 16:54 | RADRPT ---
EXAM DATE/TIME: 01/05/2018 16:31 [facility] COMPARISON: No previous studies available for comparison. INDICATIONS : Chest pain MEDICAL HISTORY : None. SURGICAL HISTORY : None. ENCOUNTER: Subsequent ACUITY: 2 days PAIN SCORE: 2/10 LOCATION: Bilateral chest FINDINGS: A single view of the chest demonstrates the lungs to be symmetrically aerated without evidence of mas s, infiltrate or effusion. The cardiomediastinal contours are unremarkable. Osseous structures are intact. CONCLUSION: No acute disease. Marcelo John MD FACR on January 05, 2018 at 16:53 Board Certified Radiologist. This report was verified electronically.
[2018-01-05 17:50] LABS: TROPONIN I LESS THAN 0.02 NG/ML (0.02-0.05)
[2018-01-05 18:21] VITALS: BP 141/95; PULSE 85; RESP 18; TEMP 97.9
[2018-01-05 19:30] LABS: AUTOMATED NEUTROPHIL # 7.1 TH/MM3 (1.8-7.7); BASOPHIL # 0.1 TH/MM3 (0-0.2); BASOPHIL % 0.8 % (0.0-2.0); EOSINOPHIL # 0.2 TH/MM3 (0-0.4); EOSINOPHIL % 1.7 % (0.0-4.0); HEMATOCRIT 42.7 % (39.0-51.0); HEMOGLOBIN 15.1 GM/DL (13.0-17.0); LYMPH % 20.9 % (9.0-44.0); LYMPHOCYTE # 2.1 TH/MM3 (1.0-4.8); MEAN CELL VOLUME 91.3 FL (80.0-100.0); MEAN CORPUSCULAR HEMOGLOBIN 32.2 PG (27.0-34.0); MEAN CORPUSCULAR HGB CONC 35.3 % (32.0-36.0); MEAN PLATELET VOLUME 7.4 FL (7.0-11.0); MONO % 6.2 % (0.0-8.0); MONOCYTE # 0.6 TH/MM3 (0-0.9); NEUT % 70.4 % (16.0-70.0); PLATELET COUNT 274 TH/MM3 (150-450); RED BLOOD COUNT 4.68 MIL/MM3 (4.50-5.90); RED CELL DISTRIBUTION WIDTH 13.8 % (11.6-17.2)
[2018-01-05] MEDS: QUEtiapine FUMARATE 100 MG TAB PO SCH (21:07)
[2018-01-05] MEDS: diphenhydrAMINE HCL 50 MG CAP PO PRN (21:30)
[2018-01-06 01:29] LABS: ALT (GPT) 17 U/L (12-78); AST (GOT) 10 U/L (15-37); BICARBONATE 31.3 MEQ/L (21.0-32.0); BLOOD UREA NITROGEN 20 MG/DL (7-18); CALCIUM 8.6 MG/DL (8.5-10.1); CHLORIDE 101 MEQ/L (98-107); GLOMERULAR FILTRATION RATE 85 ML/MIN (>89); GLUCOSE,RANDOM 89 MG/DL (74-106); SODIUM (NA) 136 MEQ/L (136-145)
[2018-01-06 01:34] LABS: ALKALINE PHOSPHATASE 63 U/L (45-117); TOTAL BILIRUBIN ADULT 0.3 MG/DL (0.2-1.0); TOTAL PROTEIN 7.3 GM/DL (6.4-8.2); TROPONIN I LESS THAN 0.02 NG/ML (0.02-0.05)
[2018-01-06 04:51] VITALS: BP 120/86; PULSE 83; RESP 16; TEMP 97.8; O2SAT 99
[2018-01-06 05:08] LABS: TROPONIN I LESS THAN 0.02 NG/ML (0.02-0.05)
[2018-01-06] MEDS: LEVOTHYROXINE SODIUM 200 MCG TAB PO SCH (06:00)
[2018-01-06] MEDS: REMOVE OLD PATCH T-DERMAL SCH (08:29)
[2018-01-06] MEDS: NICOTINE 21 MG/24 HR PATCH T-DERMAL SCH (08:29)
[2018-01-06] MEDS: SERTRALINE HCL 50 MG TAB PO SCH (08:30)
[2018-01-06] MEDS: QUEtiapine FUMARATE 25 MG TAB PO SCH (08:30)
[2018-01-06] MEDS: hydrOXYzine HCL 50 MG TAB PO PRN ×2 (09:09→17:56)
--- NOTE | 2018-01-06 09:09 | EKG ---
Date Performed: 01/05/2018 Time Performed: 22:08:07 PTAGE: 37 years EKG: Sinus rhythm POSSIBLE LEFT ATRIAL ENLARGEMENT POSSIBLE RIGHT VENTRICULAR CONDUCTION DELAY BORDERLINE ECG PREVIOUS TRACING : 01/05/2018 16.20 DOCTOR: Cameron Ribera Interpretating Date/Time 01/06/2018 09:07:29
--- NOTE | 2018-01-06 10:37 | HHI.PYPN ---
Subjective Chief Complaint: Depression/SI Remarks Patient was seen and case discussed with nursing. Patient's workup has been negative so far. He has not had any episodes of chest tightness today. He is asking about discharge. Future plans include taking a long drive it is struck and working on his disability. Mood is "good." Denies suicidal or homicidal ideation intent or plan. Compliant with medications Mental Status Examination Appearance: Appropriate Consciousness: Alert Orientation: x4 Motor Activity: Normal gait Speech: Unremarkable Language: Adequate Fund of Knowledge: Adequate Attention and Concentration: Adequate Memory: Unremarkable Mood: Anxious, Other (depressed) Affect: Blunt Thought Process & Associations: Intact, Logical, Goal directed, Linear Thought Content: Appropriate Hallucination Type: None Delusion Type: None Suicidal Ideation: No Suicidal Plan: No Suicidal Intention: No Homicidal Ideation: No Homicidal Plan: No Homicidal Intention: No Insight: Adequate Judgment: Adequate Results Labs Test 01/05/18 16:43 01/05/18 19:00 01/06/18 00:35 01/06/18 03:40 Total Creatine Kinase 73 U/L 63 U/L 58 U/L Troponin I LESS THAN 0.02 NG/ML LESS THAN 0.02 NG/ML LESS THAN 0.02 NG/ML White Blood Count 10.0 TH/MM3 Red Blood Count 4.68 MIL/MM3 Hemoglobin 15.1 GM/DL Hematocrit 42.7 % Mean Corpuscular Volume 91.3 FL Mean Corpuscular Hemoglobin 32.2 PG Mean Corpuscular Hemoglobin Concent 35.3 % Red Cell Distribution Width 13.8 % Platelet Count 274 TH/MM3 Mean Platelet Volume 7.4 FL Neutrophils (%) (Auto) 70.4 % Lymphocytes (%) (Auto) 20.9 % Monocytes (%) (Auto) 6.2 % Eosinophils (%) (Auto) 1.7 % Basophils (%) (Auto) 0.8 % Neutrophils # (Auto) 7.1 TH/MM3 Lymphocytes # (Auto) 2.1 TH/MM3 Monocytes # (Auto) 0.6 TH/MM3 Eosinophils # (Auto) 0.2 TH/MM3 Basophils # (Auto) 0.1 TH/MM3 CBC Comment DIFF FINAL Differential Comment Blood Urea Nitrogen 20 MG/DL Creatinine 1.00 MG/DL Random Glucose 89 MG/DL Total Protein 7.3 GM/DL Albumin 4.0 GM/DL Calcium Level 8.6 MG/DL Alkaline Phosphatase 63 U/L Aspartate Amino Transf (AST/SGOT) 10 U/L Alanine Aminotransferase (ALT/SGPT) 17 U/L Total Bilirubin 0.3 MG/DL Sodium Level 136 MEQ/L Potassium Level 4.2 MEQ/L Chloride Level 101 MEQ/L Carbon Dioxide Level 31.3 MEQ/L Anion Gap 4 MEQ/L Estimat Glomerular Filtration Rate 85 ML/MIN Vitals/IOs Vital Signs Date Time Temp Pulse Resp B/P (MAP) Pulse Ox O2 Delivery O2 Flow Rate FiO2 01/06/18 04:51 97.8 83 16 120/86 (97) 99 Assessment & Plan Problem List: (1) Bipolar disorder current episode depressed ICD Codes: F31.30 - Bipolar disorder, current episode depressed, mild or moderate severity, unspecified Status: Acute (2) Use of cannabis ICD Codes: F12.90 - Cannabis use, unspecified, uncomplicated Assessment & Plan Continue current treatment plan Justification for Cont. Inpt. Patient will decompensate in a less restrictive setting Request HC Surrog/Guard Advoc?: No Problem Qualifiers (1) Bipolar disorder current episode depressed: Qualified Codes: F31.4 - Bipolar disorder, current episode depressed, severe, without psychotic features Nimesh Gomez DO Jan 06, 2018 10:37
--- NOTE | 2018-01-06 10:46 | EKG ---
Date Performed: 01/05/2018 Time Performed: 16:20:10 PTAGE: 37 years EKG: Sinus rhythm POSSIBLE RIGHT VENTRICULAR CONDUCTION DELAY NONSPECIFIC T-WAVE ABNORMALITY BORDERLINE ECG PREVIOUS TRACING : 01/02/2018 08.41 DOCTOR: Cameron Ribera Interpretating Date/Time 01/06/2018 10:45:58
--- NOTE | 2018-01-06 13:48 | HHI.PR ---
Subjective Remarks Reconsult for chest tightness. Patient seen and examined. Patient reports resolution of his chest pressure and dyspnea. States he is doing well. Denies any new complaints. Objective Vitals Vital Signs Date Time Temp Pulse Resp B/P (MAP) Pulse Ox O2 Delivery O2 Flow Rate FiO2 01/06/18 04:51 97.8 83 16 120/86 (97) 99 01/05/18 18:21 97.9 85 18 141/95 (110) Result Diagram: 01/05/18 1900 01/06/18 0035 Imaging Last Impressions Chest X-Ray 01/05/18 0000 Signed Impressions: Service Date/Time: Friday, January 05, 2018 16:31 - CONCLUSION: No acute disease. Marcelo John MD FACR Objective Remarks GENERAL: Well-nourished, well-developed male patient in NAD. Awake and alert. Appears comfortable. Calm and pleasant. SKIN: Warm and dry. No rash. HEAD: Normocephalic. Atraumatic. EYES: Pupils equal and round. No scleral icterus. No injection or drainage. ENT: No nasal bleeding or discharge. Mucous membranes pink and moist. NECK: Supple. Trachea midline. CARDIOVASCULAR: Regular rate and rhythm. S1, S2 noted. No murmur appreciated. RESPIRATORY: Nonlabored. Clear to auscultation. Breath sounds equal bilaterally. GASTROINTESTINAL: Abdomen soft, non-tender, nondistended. Normoactive bowel sounds x4. MUSCULOSKELETAL: No obvious deformities. Extremities without clubbing, cyanosis , or edema. NEUROLOGICAL: Awake and alert. No obvious cranial nerve deficits. Motor grossly within normal limits. 5/5 muscle strength in bilateral upper and lower extremities. No focal neurologic findings appreciated. Normal speech. Procedures NONE Medications and IVs Current Medications Medications (Trade) Dose Ordered Sig/Dolores Route Start Time Stop Time Status Last Admin (Benadryl) 50 mg HS PRN PO 01/01/18 21:00 01/05/18 21:30 (Tylenol) 650 mg Q4H PRN PO 01/01/18 16:30 (Milk Of Magnesia Liq) 30 ml DAILY PRN PO 01/01/18 16:30 (Mag-Al Plus Susp Liq) 30 ml Q6H PRN PO 01/01/18 16:30 (Habitrol 21 Mg Patch.24 Hr) 1 patch DAILY T-DERMAL 01/01/18 16:30 01/06/18 08:29 Miscellaneous Information 1 DAILY T-DERMAL 01/02/18 09:00 01/06/18 08:29 (Zoloft) 150 mg DAILY PO 01/02/18 11:30 01/06/18 08:30 (Atarax) 50 mg Q6H PRN PO 01/02/18 11:30 01/06/18 09:09 (SEROquel) 50 mg DAILY PO 01/04/18 09:00 01/06/18 08:30 (SEROquel) 150 mg HS PO 01/03/18 21:00 01/05/18 21:07 (Pill Splitter) 1 ea UNSCH PRN OTHER 01/03/18 12:15 (Synthroid) 200 mcg DAILY@0600 PO 01/04/18 06:00 01/06/18 06:00 A/P Problem List: (1) Use of cannabis ICD Code: F12.90 - Cannabis use, unspecified, uncomplicated (2) Bipolar disorder, curr episode depressed, severe, w/psychotic features ICD Code: F31.5 - Bipolar disorder, current episode depressed, severe, with psychotic features (3) History of thyroid cancer ICD Code: Z85.850 - Personal history of malignant neoplasm of thyroid (4) Hypothyroidism ICD Code: E03.9 - Hypothyroidism, unspecified (5) Depression with suicidal ideation ICD Code: F32.9 - Major depressive disorder, single episode, unspecified; R45.851 - Suicidal ideations Status: Acute (6) Bipolar disorder current episode depressed ICD Code: F31.30 - Bipolar disorder, current episode depressed, mild or moderate severity, unspecified Status: Acute Assessment and Plan 37-year-old male with 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 Depression Suicidal ideation -Management per psychiatric team Chest pain,atypical Suspect secondary to anxiety -Ruled out ACS with negative troponins 3 -CXR reviewed and unremarkable History of thyroid cancer status post treatment with history of recurrence and subsequent treatment -Recommend outpatient follow-up with oncology and endocrinology -Patient will need thyroid uptake scan as outpatient Hypothyroidism -TSH 19.7000 -Synthroid dose increased this visit to 200mcg daily Tobacco use -Discussed importance of cessation DVT prophylaxis -Patient is ambulatory Patient is stable. Will sign off for now. Please reconsult if needed. Problem Qualifiers (1) Bipolar disorder current episode depressed: Qualified Codes: F31.4 - Bipolar disorder, current episode depressed, severe, without psychotic features Rox Mcgregor Jan 06, 2018 13:48
[2018-01-06 16:51] VITALS: BP 132/90; PULSE 78; RESP 18; TEMP 97.9; O2SAT 98
[2018-01-06] MEDS: ACETAMINOPHEN 325 MG TAB PO PRN (17:55)
[2018-01-06] MEDS: QUEtiapine FUMARATE 100 MG TAB PO SCH (21:08)
[2018-01-06] MEDS: diphenhydrAMINE HCL 50 MG CAP PO PRN (21:09)
[2018-01-07 05:26] VITALS: BP 129/83; PULSE 89; RESP 16; TEMP 97.7; O2SAT 97
[2018-01-07] MEDS: LEVOTHYROXINE SODIUM 200 MCG TAB PO SCH (05:53)
[2018-01-07] MEDS: ACETAMINOPHEN 325 MG TAB PO PRN ×2 (05:54→10:20)
[2018-01-07] MEDS: NICOTINE 21 MG/24 HR PATCH T-DERMAL SCH (08:35)
[2018-01-07] MEDS: SERTRALINE HCL 50 MG TAB PO SCH (08:35)
[2018-01-07] MEDS: QUEtiapine FUMARATE 25 MG TAB PO SCH (08:35)
[2018-01-07] MEDS: hydrOXYzine HCL 50 MG TAB PO PRN ×2 (08:35→21:12)
[2018-01-07] MEDS: REMOVE OLD PATCH T-DERMAL SCH (08:35)
--- NOTE | 2018-01-07 13:20 | HHI.PYPN ---
Subjective Chief Complaint: Depression/SI Remarks Patient seen and examined. Chart reviewed. Case discussed with nursing staff. No behavioral issues noted overnight. Case discussed with counselor. On my examination today, the patient reports that mood remains depressed but is improving. Sleep remains poor, and we discussed titration of Seroquel to help with both of these issues. He denies any suicidal or homicidal ideation. Denies any audiovisual hallucinations. Denies any side effects from medications. No acute physical complaints. Review of Systems Except as stated in HPI: all other systems reviewed are Neg Mental Status Examination Appearance: Appropriate Consciousness: Alert Orientation: x4 Motor Activity: Other (no motor abnormalities noted) Speech: Unremarkable Language: Adequate Fund of Knowledge: Adequate Attention and Concentration: Adequate Memory: Unremarkable Mood: Other (depressed, improving) Affect: Blunt Thought Process & Associations: Intact, Logical, Goal directed, Linear Thought Content: Appropriate Hallucination Type: None Delusion Type: None Suicidal Ideation: No Suicidal Plan: No Suicidal Intention: No Homicidal Ideation: No Homicidal Plan: No Homicidal Intention: No Insight: Adequate Judgment: Adequate Results Labs Labs reviewed. Vitals/IOs Vital Signs Date Time Temp Pulse Resp B/P (MAP) Pulse Ox O2 Delivery O2 Flow Rate FiO2 01/07/18 05:26 97.7 89 16 129/83 (98) 97 Assessment & Plan Problem List: (1) Bipolar disorder current episode depressed ICD Codes: F31.30 - Bipolar disorder, current episode depressed, mild or moderate severity, unspecified Status: Acute (2) Use of cannabis ICD Codes: F12.90 - Cannabis use, unspecified, uncomplicated Assessment & Plan Titrate Seroquel to 50/250 mg for mood stabilization and to assist with sleep. Continue Zoloft as ordered. Hospitalist input noted and appreciated. Continue to monitor on the inpatient unit. Continue other medications and care as ordered. Justification for Cont. Inpt. Med changes. Discharge Planning Possible discharge 1-2 days. Request HC Surrog/Guard Advoc?: No Problem Qualifiers (1) Bipolar disorder current episode depressed: Qualified Codes: F31.4 - Bipolar disorder, current episode depressed, severe, without psychotic features Eagle Mendez MD Jan 07, 2018 13:20
[2018-01-07] MEDS ORDERED: ACETAMIN 325 MG/BUTALBITAL 50 MG/CAFFEINE 40 MG TAB PO ONE (15:45)
[2018-01-07 17:46] VITALS: BP 143/98; PULSE 88; RESP 16; TEMP 97.9; O2SAT 97
[2018-01-07] MEDS ORDERED: QUEtiapine FUMARATE 100 MG TAB PO SCH (21:00)
[2018-01-07] MEDS: diphenhydrAMINE HCL 50 MG CAP PO PRN (21:12)
[2018-01-08 06:07] VITALS: BP 120/82; PULSE 89; RESP 18; TEMP 98.2
[2018-01-08] MEDS: LEVOTHYROXINE SODIUM 200 MCG TAB PO SCH (06:20)
[2018-01-08] MEDS: REMOVE OLD PATCH T-DERMAL SCH (08:07)
[2018-01-08] MEDS: SERTRALINE HCL 50 MG TAB PO SCH (08:07)
[2018-01-08] MEDS: QUEtiapine FUMARATE 25 MG TAB PO SCH (08:07)
[2018-01-08] MEDS: NICOTINE 21 MG/24 HR PATCH T-DERMAL SCH (08:07)
[2018-01-08] MEDS: hydrOXYzine HCL 50 MG TAB PO PRN (09:00)
[2018-01-08] MEDS ORDERED: SERO25TA PO (09:01)
[2018-01-08] MEDS ORDERED: SERO300T PO (09:01)
[2018-01-08] MEDS ORDERED: ZOLO100T PO (09:01)
[2018-01-08] MEDS ORDERED: LEVO.2 PO (09:01)
--- NOTE | 2018-01-08 09:01 | HHI.DS ---
Psychiatry Discharge Summary Inpatient Psychiatric care?: Yes Advance Directive: No Reason Not Provided: none Mental Health AdvanceDirective: No Health Care Proxy: No Admission Admission Date Jan 01, 2018 at 16:29 Admission Diagnosis: (1) Bipolar disorder current episode depressed ICD Code: F31.30 - Bipolar disorder, current episode depressed, mild or moderate severity, unspecified (2) Use of cannabis ICD Code: F12.90 - Cannabis use, unspecified, uncomplicated Brief History Mr. Hubbard is a 37-year-old male with a reported history of bipolar disorder and PTSD from childhood trauma who presented initially voluntarily to [facility] for psychiatric evaluation. He was placed under a Mccormick act and sent to [facility] where he was seen by the psychiatric nurse practitioner. Reviewing the electronic medical record, I note that the patient was admitted most recently under Dr. June in November, discharged on Geodon and trazodone at that time. Patient seen and examined with nurse. Chart reviewed. Case discussed with nursing staff. On my examination today, the patient reports that he has been nonadherent with psychotropic medications for the last several weeks at least secondary to being unable to obtain refills of these medications. He notes that he was completely off of his trazodone and Zoloft which he was prescribed and was taking half doses of Geodon. Patient reports that his mood has been fairly unstable in the setting of this nonadherence either "very high or very low." He also endorses suicidal ideation with plan to hang himself although he contracts for safety on the inpatient unit. Focus and concentration are poor. He describes a good deal of anxious rumination. Sleep is poor. Appetite is poor. He endorses hopeless feelings. No hypomanic or manic symptoms presently , although the patient describes a history of what sounds like hypomania in the past. He denies any AVH presently but has experienced command type hallucinations in the past. No delusional material. The remainder of the psychiatric ROS is negative. No physical complaints. Past psychiatric history: The patient reports a history of bipolar disorder and PTSD. He is not currently following with an outpatient psychiatric provider. He has 4 previous psychiatric admissions, most recently here at [facility]. He reports one previous suicide attempt by overdose. He has been on Effexor and Cymbalta in the past without much benefit. He reports that he was most recently prescribed Geodon, Zoloft and trazodone. Family history: The patient reports that his mother has bipolar disorder. A maternal uncle completed suicide. There is no family history of substance use disorder. Chemical dependency history: The patient reports use of cannabis. Urine toxicology was positive for cannabinoids and for benzodiazepines. Social history: Patient resides alone. He is and has 5 children. He is high school educated. Presently unemployed. No or legal history. Denies any access to guns or firearms. He is a Yazidism. Tobacco Use In Past 30 Days: 5 or More Cigarettes/Day Alcohol Use: Monthly or Less Hospital Course Patient was admitted to a locked, inpatient psychiatric unit. General medical consultation was obtained. Appropriate precautions were in place throughout patient's hospital stay. Patient was seen and examined on the unit by psychiatry and also visited by counselor. Psychotropic medications were adjusted. Patient tolerated medications well without side effects. Patient had improvement in presenting psychiatric symptomatology during the course of his hospital stay. There was no evidence of any suicidality or homicidality on the inpatient unit. The patient remained in good behavioral control and was compliant with medications. On the day of discharge: Patient seen and examined with nurse. Chart reviewed. Case discussed with nursing staff. No behavioral issues noted overnight. Case discussed in treatment team. On my examination today, the patient reports that he feels improved and is ready for discharge from the inpatient psychiatric unit today. He denies any suicidal or homicidal ideation, intent or plan on direct questioning and contracts for safety. He describes his mood as good and I can elicit no depressive or hypomanic/manic symptoms presently. He denies any audiovisual hallucinations. I can elicit no delusional beliefs. There is no evidence of any impairment in reality construction. He denies side effects from medications. We do agree to titrate his Seroquel and discharge to 300 mg at bedtime to continue to assist with sleep and for ease of dosing. He has no physical complaints. Suicide and violence risk assessment on day of discharge both suggest lower imminent risk from a mental illness as defined under the Mccormick act and the patient's level of function is adequate for outpatient care. The patient has maximized benefit from this inpatient psychiatric hospital stay and will be discharged today with psychiatric follow-up as arranged by counselor. Patient is also to follow-up with primary care. Patient is additionally to follow-up with endocrinology and oncology. I have counseled the patient to abstain from substances of abuse and recommended chemical dependency evaluation and treatment on outpatient basis. I counseled the patient regarding warning signs for need to return to the psychiatric emergency room as part of a general safety plan. Results Blood Pressure 120 / 82 Vital Signs Date Time Temp Pulse Resp B/P (MAP) Pulse Ox O2 Delivery O2 Flow Rate FiO2 01/08/18 06:07 98.2 89 18 120/82 (95) 01/07/18 17:46 97 Laboratory Tests Test 01/05/18 16:43 01/05/18 19:00 01/06/18 00:35 01/06/18 03:40 Troponin I LESS THAN 0.02 NG/ML LESS THAN 0.02 NG/ML LESS THAN 0.02 NG/ML Neutrophils (%) (Auto) 70.4 % (16.0-70.0) Blood Urea Nitrogen 20 MG/DL (7-18) Aspartate Amino Transf (AST/SGOT) 10 U/L (15-37) Anion Gap 4 MEQ/L (5-15) Estimat Glomerular Filtration Rate 85 ML/MIN (>89) Laboratory Results Test 01/02/18 06:49 Cholesterol Level 178 MG/DL (120-200) HDL Cholesterol 47.4 MG/DL (40.0-60.0) Hemoglobin A1c 5.0 % (4.3-6.0) LDL Cholesterol 118 MG/DL (0-99) Triglycerides Level 65 MG/DL (42-150) Summary of Procedures None done Imaging Last Impressions Chest X-Ray 01/05/18 0000 Signed Impressions: Service Date/Time: Friday, January 05, 2018 16:31 - CONCLUSION: No acute disease. Marcelo John MD FACR Pending results at discharge: No Medications # of Antipsychotic meds at D/C: 1 Approp Antipsych med options 1 - Minimum of three failed multiple trials of monotherapy. 2 - Documented plan to taper to monotherapy due to previous use of multiple meds OR cross-taper in progress at D/C. 3 - Documentation of augmentation of Clozapine. 4 - Justification other than those listed in allowable values 1-3, document here : Discharge Discharge Date: Jan 08, 2018 Discharge Diagnosis: (1) Bipolar affective disorder, depressed, in remission Diagnosis: Principal ICD Code: F31.70 - Bipolar disorder, currently in remission, most recent episode unspecified (2) Use of cannabis Diagnosis: Secondary (counseled to quit) ICD Code: F12.90 - Cannabis use, unspecified, uncomplicated Pt Condition on Discharge: Stable Discharge Disposition: Discharge Home Discharge Instructions Diet Instructions: As Tolerated, No Restrictions Activities you can perform: Weight Bearing as Lito Scheduled Appointment: as per counselor's notes New Orders: NM THYROID UPTAKE AND SCAN New Medications: Quetiapine (Seroquel) 300 Mg Tab 300 MG PO HS for Mental Health for 15 Days, TAB 1 Refill Levothyroxine (Synthroid) 200 Mcg Tab 200 MCG PO DAILY@0600 for Thyroid for 15 Days, TAB 1 Refill Quetiapine (Seroquel) 25 Mg Tab 50 MG PO DAILY for Mental Health for 15 Days, #30 TAB 1 Refill Continued Medications: Sertraline (Zoloft) 100 Mg Tab 150 MG PO DAILY for Mental Health for 15 Days, #23 TAB 1 Refill (This prescription has been renewed) Discontinued Medications: Levothyroxine (Levothyroxine) 125 Mcg Tab 125 MCG PO DAILY for Thyroid, #30 TAB 0 Refills Trazodone (Trazodone) 150 Mg Tablet 150 MG PO HS for Control Depression, #30 TAB 0 Refills Ziprasidone (Geodon) 40 Mg Cap 40 MG PO BIDPC for health for 30 Days, #60 CAP Discharge Time <= 30 minutes Mental Status Examination Appearance: Appropriate Consciousness: Alert Orientation: x4 Motor Activity: Other (no abnormal motor movements noted) Speech: Unremarkable Language: Adequate Fund of Knowledge: Adequate Attention and Concentration: Adequate Memory: Unremarkable Mood: Appropriate, Good Affect: Appropriate Thought Process & Associations: Intact, Logical, Goal directed, Linear Thought Content: Appropriate Hallucination Type: None Delusion Type: None Suicidal Ideation: No Suicidal Plan: No Suicidal Intention: No Homicidal Ideation: No Homicidal Plan: No Homicidal Intention: No Insight: Adequate Judgment: Adequate Discharge/Advance Care Plan Health Problems: (1) Bipolar disorder current episode depressed (2) Use of cannabis Goals to promote your health * To prevent worsening of your condition and complications * To maintain your health at the optimal level Directions to meet your goals Take your medications as prescribed Follow your dietary instruction Follow activity as directed Keep your appointments as scheduled Take your immunizations and boosters as scheduled If your symptoms worsen call your PCP, if no PCP go to Urgent Care Center or Emergency Room For 28/05 questions related to your inpatient stay or results of tests pending at discharge, please contact Dr. Eagle Mendez at Smoking is Dangerous to Your Health. Avoid second hand smoking Problem Qualifiers (1) Bipolar disorder current episode depressed: Qualified Codes: F31.4 - Bipolar disorder, current episode depressed, severe, without psychotic features Eagle Mendez MD Jan 08, 2018 09:01
--- NOTE | 2018-01-08 10:00 | PD.TTN ---
Patient Problems 1. Discharge planning 2. Medication compliance 3. Knowledge deficit 4. Lack of coping skills Progress Toward Goals Provider Present: Dr. Michi Mendez Provider Input: Meets criteria for Discharge Psychiatric Counselors Present: Genaro Caldera Jr., [facility], Rosa Rowan, [facility] , Cierra Cano, [facility] Psych Therapist Input: Meets criteria for discharge Group Spec/RT/OT/MCLEAN Present: Jeannie Pino [facility] Group Spec/RT/OT/MCLEAN Input: Pt is visable in the [facility], but declines to participate in the scheduled group activities. Pt is social with select peers. Jeannie Pino Jan 08, 2018 10:00
== END 2018-01-08 14:45 | disposition home or self-care (01) | DRG 885 ==
LOC: NEPJ 15:28 → NEDA 16:29 → H260 19:10
PROVIDERS: ADMIT Psychiatry & Neurology Psychiatry; ATTEND Psychiatry & Neurology Psychiatry
DX: F31.70 Bipolar disorder, currently in remission, most recent episode unspecified (principal); Z91.14 Patient's other noncompliance with medication regimen; E89.0 Postprocedural hypothyroidism; F17.210 Nicotine dependence, cigarettes, uncomplicated; F12.90 Cannabis use, unspecified, uncomplicated; Z85.850 Personal history of malignant neoplasm of thyroid; Z92.21 Personal history of antineoplastic chemotherapy; Z81.8 Family history of other mental and behavioral disorders
CPT/HCPCS: 71045; 80048; 80053; 80061; 80307; 82550; 83036; 83735; 84100; 84443; 84484; 85025; 93005; 99283; Q0163